=== PATIENT | male | born 1955 | race Caucasian/White ===

== ENCOUNTER 2024-12-29 23:49 | Emergency (ER) | payer MEDICARE, MEDICAID ==
[~2024-12-29] VITALS: Ht 182.9 cm; Wt 102.3 kg
[2024-12-30] MEDS: GASTROGRAFIN SOLUTION 30ML PO SCH (06:53)
[2024-12-30] MEDS: NS (Normal Saline) 0.9% 1,000 ML IV ONE (06:53)
[2024-12-30] MEDS: KETOROLAC 30 MG/ML 1ML VIAL IV ONE (06:53)
[2024-12-30 06:57] LABS: BASO # 0.1 10^3/uL (0.0-0.2); EOS # 0.2 10^3/uL (0.0-0.5); EOS % 3.6 % (0.0-3.0); HEMATOCRIT 36.3 % (42.0-52.0); HEMOGLOBIN 12.6 g/dl (13.5-17.5); MEAN CORPUSCULAR HEMOGLOBIN 30.3 pg (27.0-33.0); MEAN CORPUSCULAR HGB CONC 34.7 g/dl (32.0-36.5); MEAN CORPUSCULAR VOLUME 87.3 fl (80.0-96.0); MONO # 0.7 10^3/uL (0.0-0.8); MONO % 10.9 % (2.0-8.0); NEUTROPHILS # 4.2 10^3/uL (1.5-8.5); NEUTROPHILS % 68.3 % (36.0-66.0); RED BLOOD COUNT 4.16 10^6/uL (4.30-6.10); WHITE BLOOD COUNT 6.1 10^3/uL (4.0-10.0)
[2024-12-30 07:18] LABS: LIPASE 19 U/L (12-53)
[2024-12-30 07:21] LABS: ALBUMIN 2.8 G/DL (3.2-5.2); ALKALINE PHOSPHATASE 127 U/L (40-129); ALT/SGPT 16 U/L (7.0-40); AST/SGOT 25 U/L (<34); BILIRUBIN,DIRECT 0.8 MG/DL (<0.4); BILIRUBIN,TOTAL 1.9 MG/DL (0.3-1.2); BLOOD UREA NITROGEN 8 MG/DL (9-23); CALCIUM LEVEL 8.6 MG/DL (8.3-10.6); CARBON DIOXIDE LEVEL 28 MMOL/L (20-31); CHLORIDE LEVEL 108 MMOL/L (98-107); CREATININE FOR GFR 0.75 MG/DL (0.70-1.30); GLOMERULAR FILTRATION RATE > 60.0 (>49); GLUCOSE, FASTING 100 MG/DL (74-106); POTASSIUM SERUM 3.8 MMOL/L (3.5-5.1); SODIUM LEVEL 143 MMOL/L (136-145); TOTAL PROTEIN 6.1 G/DL (5.7-8.2)
[2024-12-30 08:06] LABS: INR 1.24; PARTIAL THROMBOPLASTIN TIME 42.3 SECONDS (24.8-34.2); PROTHROMBIN TIME 15.9 SECONDS (12.5-14.5)
[2024-12-30] MEDS ORDERED: ISOVUE-370 76% 100ML VIAL As Ordered ONE (08:15)
[2024-12-30] MEDS: ATORVASTATIN 20 MG TAB PO SCH (09:00)
[2024-12-30] MEDS ORDERED: SPIR-10 PO (16:27)
[2024-12-30] MEDS ORDERED: CONS10SO3 PO (16:27)
[2024-12-30] MEDS ORDERED: LEVE750T5 PO (16:27)
[2024-12-30] MEDS ORDERED: MELA5TAB47 PO (16:27)
[2024-12-30] MEDS ORDERED: NAPR-885 PO (16:27)
[2024-12-30] MEDS ORDERED: TRAZ-257 PO (16:27)
[2024-12-30] MEDS ORDERED: DULO1CAP5 PO (16:27)
[2024-12-30] MEDS ORDERED: CYCL-707 PO (16:27)
[2024-12-30] MEDS ORDERED: PANT40TA29 PO (16:27)
[2024-12-30] MEDS ORDERED: XIFA550T PO (16:27)
[2024-12-30] MEDS ORDERED: TREL1AER INH (16:27)
[2024-12-30] MEDS ORDERED: ATOR40TA75 PO (16:27)
[2024-12-30] MEDS ORDERED: GABA-1172 PO (16:27)
[2024-12-30] MEDS ORDERED: ACET1TAB55 PO (16:27)
[2024-12-30] MEDS ORDERED: FURO40TA2 PO (16:27)
[2024-12-30] MEDS ORDERED: HOME MED LIST COMPLETE! XX SCH (16:30)
[2024-12-30] MEDS: LACTULOSE 20GM/30ML SYRUP UDC PO SCH (17:29)
[2024-12-30] MEDS: FUROSEMIDE 40 MG TAB PO SCH (18:23)
[2024-12-30] MEDS: SPIRONOLACTONE 25 MG TAB PO SCH (18:23)
[2024-12-30] MEDS: levETIRAcetam 250MG TABLET (KEPPRA) PO SCH (20:12)
[2024-12-30] MEDS: DULoxetine 30MG CAPSULE (CYMBALTA) PO SCH (20:12)
[2024-12-30] MEDS: PANTOPRAZOLE 40MG TAB (PROTONIX) PO SCH (20:13)
[2024-12-30] MEDS: GABAPENTIN 300 MG CAP PO SCH (20:13)
[2024-12-30] MEDS: traZODone 100 MG TAB PO SCH (20:13)
[2024-12-30] MEDS: rifAXIMin 550 MG TAB (XIFAXAN) PO SCH (21:22)
[2024-12-31] MEDS ORDERED: NADOLOL 20MG TABLET PO SCH (09:00)
[2025-01-01] MEDS ORDERED: ACETAMINOPHEN 325 MG TAB PO PRN (02:20)
[2025-01-01] MEDS: KETOROLAC 30 MG/ML 1ML VIAL IV ONE (02:42)
[2025-01-01] MEDS: LIDOCAINE 5% (LIDODERM) PATCH TD SCH (02:42)
[2025-01-01] MEDS ORDERED: KETOROLAC 30 MG/ML 1ML VIAL IV PRN (09:00)
[2025-01-01 12:00] VITALS: BP 104/53; TEMP 97.1; O2SAT 95
== END 2025-01-01 12:05 | disposition home or self-care (01) ==
LOC: M ED 23:49
DX: R26.2 Difficulty in walking, not elsewhere classified (principal); K76.6 Portal hypertension; K74.69 Other cirrhosis of liver; K42.9 Umbilical hernia without obstruction or gangrene; K21.9 Gastro-esophageal reflux disease without esophagitis; E78.5 Hyperlipidemia, unspecified; J44.9 Chronic obstructive pulmonary disease, unspecified; F17.210 Nicotine dependence, cigarettes, uncomplicated; F10.10 Alcohol abuse, uncomplicated; F19.10 Other psychoactive substance abuse, uncomplicated; Z79.1 Long term (current) use of non-steroidal anti-inflammatories (NSAID); Z79.899 Other long term (current) drug therapy; Z88.1 Allergy status to other antibiotic agents; Z88.5 Allergy status to narcotic agent; Z88.8 Allergy status to other drugs, medicaments and biological substances
CPT/HCPCS: 74177; 80048; 80076; 83605; 83690; 85025; 85610; 85730; 86850; 86900; 86901; 93041; 96361; 96374; 96375; 97161; 97530; 99285; J1885; Q9963; Q9967

== ENCOUNTER 2025-01-05 10:36 | Inpatient (IN) | payer MEDICARE, MEDICAID ==
[~2025-01-05] VITALS: Ht 182.9 cm; Wt 104.6 kg
[2025-01-05] MEDS: FUROSEMIDE 40 MG TAB PO SCH (09:00)
[2025-01-05] MEDS: ATORVASTATIN 20 MG TAB PO SCH (09:00)
[2025-01-05] MEDS: DULoxetine 30MG CAPSULE (CYMBALTA) PO SCH (09:00)
[2025-01-05] MEDS: SPIRONOLACTONE 25 MG TAB PO SCH (09:00)
[2025-01-05] MEDS: FLUTICASONE HFA 110MCG 12GM INHALER INH SCH (09:00)
[~2025-01-05 10:36] MED LIST: ACET1TAB55 PO; ATOR40TA75 PO; CONS10SO3 PO; CYCL-707 PO; DULO1CAP5 PO; FURO40TA2 PO; GABA-1172 PO; LEVE750T5 PO; MELA5TAB47 PO; NAPR-885 PO; PANT40TA29 PO; SPIR-10 PO; TRAZ-257 PO; TREL1AER INH; XIFA550T PO
[2025-01-05 14:00] LABS: HEMATOCRIT 34.9 % (42.0-52.0); HEMOGLOBIN 12.3 g/dl (13.5-17.5); MEAN CORPUSCULAR HEMOGLOBIN 30.2 pg (27.0-33.0); MEAN CORPUSCULAR HGB CONC 35.2 g/dl (32.0-36.5); MEAN CORPUSCULAR VOLUME 85.7 fl (80.0-96.0); RED BLOOD COUNT 4.07 10^6/uL (4.30-6.10); WHITE BLOOD COUNT 5.4 10^3/uL (4.0-10.0)
[2025-01-05 14:19] LABS: AMPHETAMINES LEVEL URINE NEGATIVE (NEGATIVE); BARBITURATES URINE NEGATIVE (NEGATIVE); BENZODIAZEPINES URINE NEGATIVE (NEGATIVE); CANNABINOIDS URINE NEGATIVE (NEGATIVE); COCAINE METABOLITE URINE NEGATIVE (NEGATIVE); METHADONE URINE NEGATIVE (NEGATIVE); OPIATES URINE NEGATIVE (NEGATIVE); PHENCYCLIDINE URINE NEGATIVE (NEGATIVE)
[2025-01-05 14:21] LABS: ETHYL ALCOHOL (ETHANOL) 0.005 % (0.000-0.010)
[2025-01-05 14:22] LABS: SALICYLATE LEVEL < 3.0 MG/DL (<30)
[2025-01-05 14:23] LABS: ALKALINE PHOSPHATASE 119 U/L (40-129); ALT/SGPT 14 U/L (7.0-40); AST/SGOT 27 U/L (<34); BILIRUBIN,DIRECT 0.6 MG/DL (<0.4); BILIRUBIN,TOTAL 1.3 MG/DL (0.3-1.2); BLOOD UREA NITROGEN 8 MG/DL (9-23); CALCIUM LEVEL 8.3 MG/DL (8.3-10.6); CARBON DIOXIDE LEVEL 24 MMOL/L (20-31); CHLORIDE LEVEL 109 MMOL/L (98-107); CREATININE FOR GFR 0.73 MG/DL (0.70-1.30); GLOMERULAR FILTRATION RATE > 60.0 (>49); GLUCOSE, FASTING 86 MG/DL (74-106); POTASSIUM SERUM 3.8 MMOL/L (3.5-5.1); SODIUM LEVEL 140 MMOL/L (136-145); TOTAL PROTEIN 6.3 G/DL (5.7-8.2)
[2025-01-05 14:24] LABS: THYROID STIMULATING HORMONE 4.581 uIU/ML (0.55-4.78)
[2025-01-05 14:51] LABS: PLATELET COUNT, AUTOMATED 62 10^3/uL (150-450)
[2025-01-05] MEDS ORDERED: HOME MED LIST COMPLETE! XX SCH (15:45)
[2025-01-05] MEDS: GABAPENTIN 300 MG CAP PO SCH (16:00)
[2025-01-05 17:18] LABS: APPEARANCE, URINE CLEAR (CLEAR); BACTERIA, URINE AUTO NEGATIVE (NEGATIVE); BILIRUBIN, URINE AUTO NEGATIVE (NEGATIVE); BLOOD, URINE BLOOD NEGATIVE (NEGATIVE); COLOR, URINE YELLOW (YELLOW); GLUCOSE, URINE (UA) AUTO NEGATIVE (NEGATIVE); KETONE, URINE AUTO NEGATIVE (NEGATIVE); LEUKOCYTE ESTERASE, URINE AUTO NEGATIVE (NEGATIVE); NITRITE, URINE AUTO NEGATIVE (NEGATIVE); PROTEIN, URINE AUTO NEGATIVE (NEGATIVE); RBC, URINE AUTO 2 /HPF (0-3); SPECIFIC GRAVITY URINE AUTO 1.009 (1.002-1.035); SQUAMOUS EPITHELIAL CELL UR AU 0 /HPF (0-6); WBC, URINE AUTO 0 /HPF (0-3)
[2025-01-05] MEDS: LACTULOSE 20GM/30ML SYRUP UDC PO SCH (20:50)
[2025-01-05] MEDS: traZODone 100 MG TAB PO SCH (21:29)
[2025-01-05] MEDS: NAPROXEN 250 MG TAB PO SCH (21:33)
[2025-01-05] MEDS: levETIRAcetam 250MG TABLET (KEPPRA) PO SCH (21:33)
[2025-01-05] MEDS: CYCLOBENZAPRINE 10MG TABLET PO SCH (21:34)
[2025-01-05] MEDS: PANTOPRAZOLE 40MG TAB (PROTONIX) PO SCH (21:34)
[2025-01-07] MEDS: TIOTROPIUM BROM 2.5MCG/ACTUATION 4GM INH IH SCH (08:00)
[2025-01-07] MEDS: ADVAIR HFA 115/21MCG INHALER INH SCH (08:00)
[2025-01-07] MEDS ORDERED: diphenhydrAMINE 25MG CAP PO PRN (13:55)
[2025-01-07] MEDS ORDERED: OLANZapine ORAL DISINTEGRATING TAB 5MG PO PRN (13:55)
[2025-01-07] MEDS ORDERED: traZODone 50 MG TAB PO PRN (13:55)
[2025-01-07] MEDS ORDERED: MAALOX 30 ML SUSP *UDC PO PRN (13:55)
[2025-01-07] MEDS ORDERED: MOM 30ML SUSPENSION UDC PO PRN (13:55)
[2025-01-07] MEDS ORDERED: ACETAMINOPHEN 325 MG TAB PO PRN (13:55)
[2025-01-07 14:54] VITALS: BP 165/74; TEMP 97.8; O2SAT 96
[2025-01-07] MEDS: IBUPROFEN 400MG TAB PO PRN (18:58)
[2025-01-07] MEDS: CYCLOBENZAPRINE 10MG TABLET PO SCH (22:30)
[2025-01-07] MEDS: NAPROXEN 250 MG TAB PO SCH (22:30)
[2025-01-07] MEDS: PANTOPRAZOLE 40MG TAB (PROTONIX) PO SCH (22:30)
[2025-01-07] MEDS: GABAPENTIN 300 MG CAP PO SCH (22:31)
[2025-01-07] MEDS: levETIRAcetam 250MG TABLET (KEPPRA) PO SCH (22:31)
[2025-01-08 06:34] VITALS: BP 124/63; TEMP 98; O2SAT 94
[2025-01-08] MEDS ORDERED: FUROSEMIDE 40 MG TAB PO SCH (09:00)
[2025-01-08] MEDS ORDERED: SPIRONOLACTONE 25 MG TAB PO SCH (09:00)
[2025-01-08] MEDS: FUROSEMIDE 40 MG TAB PO SCH (09:07)
[2025-01-08] MEDS: DULoxetine 30MG CAPSULE (CYMBALTA) PO SCH (09:08)
[2025-01-08] MEDS: ATORVASTATIN 20 MG TAB PO SCH (09:08)
[2025-01-08] MEDS: SPIRONOLACTONE 25 MG TAB PO SCH (11:16)
[2025-01-08] MEDS: CYCLOBENZAPRINE 10MG TABLET PO SCH (11:16)
[2025-01-08] MEDS: LACTULOSE 20GM/30ML SYRUP UDC PO SCH (15:26)
[2025-01-08 16:02] VITALS: BP 145/67; TEMP 97.4; O2SAT 93
[2025-01-08] MEDS: traZODone 100 MG TAB PO SCH (19:36)
[2025-01-09 06:22] VITALS: BP 98/49; TEMP 98; O2SAT 95
== END 2025-01-09 15:51 | disposition home or self-care (01) | DRG 881 ==
LOC: M ED 10:36 → M ED INP 01-07 11:17 → M PSY 01-07 13:31
PROVIDERS: ADMIT Psychiatry & Neurology Psychiatry; ATTEND Psychiatry & Neurology Psychiatry
DX: F32.9 Major depressive disorder, single episode, unspecified (principal); Z59.02 Unsheltered homelessness; K76.6 Portal hypertension; F41.1 Generalized anxiety disorder; F17.200 Nicotine dependence, unspecified, uncomplicated; J44.9 Chronic obstructive pulmonary disease, unspecified; G40.909 Epilepsy, unspecified, not intractable, without status epilepticus; K21.9 Gastro-esophageal reflux disease without esophagitis; K74.60 Unspecified cirrhosis of liver; D69.6 Thrombocytopenia, unspecified; G62.9 Polyneuropathy, unspecified; E78.5 Hyperlipidemia, unspecified; Z79.899 Other long term (current) drug therapy; Z88.0 Allergy status to penicillin; Z88.1 Allergy status to other antibiotic agents; Z88.5 Allergy status to narcotic agent; Z88.8 Allergy status to other drugs, medicaments and biological substances; Z91.048 Other nonmedicinal substance allergy status

== ENCOUNTER → 2025-01-18 | Outpatient (CLI) | payer MEDICARE, MEDICAID | LOC: M SOG 07:47 | PROVIDERS: ATTEND Orthopaedic Surgery | DX: M25.551 Pain in right hip (principal) ==

== ENCOUNTER 2025-01-24 21:46 | Emergency (ER) | payer MEDICARE, MEDICAID ==
[~2025-01-24] VITALS: Ht 182.9 cm; Wt 97.2 kg
[2025-01-24 21:53] VITALS: BP 124/61; TEMP 98.6; O2SAT 97
== END 2025-01-25 02:34 | disposition left against medical advice (07) ==
LOC: EDBD 21:46 → M ED 21:46
DX: Z53.21 Procedure and treatment not carried out due to patient leaving prior to being seen by health care provider (principal)

== ENCOUNTER → 2025-01-30 | Outpatient (CLI) | payer MEDICARE, MEDICAID | LOC: M SOG 07:51 | PROVIDERS: ATTEND Orthopaedic Surgery | DX: M25.551 Pain in right hip (principal) ==

== ENCOUNTER → 2025-04-10 | Outpatient (CLI) | payer MEDICARE, MEDICAID ==
[~2025-04-10] MED LIST changes: +ALBU2.5V10 INH; +CEFD300CAP PO; +SPIR100T3 PO; +TRIA1CR80 TOP; +VENTAER INH
== END ==
LOC: M SOG 07:23
PROVIDERS: ATTEND Orthopaedic Surgery
DX: M16.11 Unilateral primary osteoarthritis, right hip (principal)

== ENCOUNTER 2025-05-11 12:07 | Emergency (ER) | payer MEDICARE, MEDICAID ==
[~2025-05-11] VITALS: Ht 182.9 cm; Wt 96.2 kg
[2025-05-11] MEDS: PERCOCET 5MG/325MG TAB PO ONE (12:51)
[2025-05-11] MEDS ORDERED: HOME MED LIST COMPLETE! XX SCH (15:45)
[2025-05-11] MEDS ORDERED: SPIR100T3 PO (15:45)
[2025-05-11] MEDS ORDERED: CYCL5TAB4 PO (15:45)
[2025-05-11] MEDS ORDERED: DULO40CA PO (15:45)
[2025-05-11] MEDS: predniSONE 20 MG TAB PO ONE (15:56)
[2025-05-11] MEDS: KETOROLAC 30 MG/ML 1 ML VIAL IM ONE (18:13)
[2025-05-11] MEDS: CYCLOBENZAPRINE 5 MG TABLET PO ONE (18:13)
[2025-05-11] MEDS: GABAPENTIN 300 MG CAP PO ONE (18:13)
[2025-05-11] MEDS ORDERED: PERC5TAB12 PO (18:42)
[2025-05-11] MEDS ORDERED: KETO-204 PO (18:42)
[2025-05-11 19:41] VITALS: BP 159/71; TEMP 96.4; O2SAT 94
== END 2025-05-11 19:45 | disposition home or self-care (01) ==
LOC: M ED 12:07
DX: M51.360 Other intervertebral disc degeneration, lumbar region with discogenic back pain only (principal); M48.061 Spinal stenosis, lumbar region without neurogenic claudication; I10 Essential (primary) hypertension; J44.9 Chronic obstructive pulmonary disease, unspecified; E78.5 Hyperlipidemia, unspecified; Z88.1 Allergy status to other antibiotic agents; Z88.5 Allergy status to narcotic agent; Z88.8 Allergy status to other drugs, medicaments and biological substances; Z79.01 Long term (current) use of anticoagulants; Z79.51 Long term (current) use of inhaled steroids; Z79.899 Other long term (current) drug therapy
CPT/HCPCS: 72146; 72148; 96372; 99285; J1885; J7512

== ENCOUNTER 2025-05-31 11:38 | Observation (INO) | payer MEDICARE, MEDICAID ==
[~2025-05-31 11:38] MED LIST changes: +CYCL5TAB4 PO; +DULO40CA PO; +KETO-204 PO; +PERC5TAB12 PO
[2025-05-31 12:11] LABS: VENOUS BASE EXCESS 1.9 (-2.0-2.0); VENOUS HCO3 29.1 MMOL/L (23.0-27.0); VENOUS O2 SATURATION 51.5 % (60.0-80.0); VENOUS PARTIAL PRESSURE CO2 56.1 mmHg (38.0-50.0); VENOUS PARTIAL PRESSURE O2 32.0 mmHg (30.0-50.0); VENOUS PH 7.333 UNITS (7.330-7.430); VENOUS STANDARD HCO3 25.0 MMOL/L; VENOUS TOTAL CO2 30.8 MMOL/L (24.0-28.0)
[2025-05-31 12:18] LABS: BASO # 0.1 10^3/uL (0.0-0.2); BASO % 1.1 % (0.0-1.0); EOS # 0.2 10^3/uL (0.0-0.5); EOS % 4.4 % (0.0-3.0); LYMPH # 0.8 10^3/uL (1.5-5.0); LYMPH % 15.3 % (24.0-44.0); MONO # 0.6 10^3/uL (0.0-0.8); MONO % 11.1 % (2.0-8.0); NEUTROPHILS # 3.5 10^3/uL (1.5-8.5); NEUTROPHILS % 67.9 % (36.0-66.0)
[2025-05-31 12:20] LABS: PLATELET COUNT, AUTOMATED 66 10^3/uL (150-450)
[2025-05-31 12:36] LABS: OSMOLALITY SERUM 307 MOSM/KG (280-301)
[2025-05-31 12:40] LABS: ETHYL ALCOHOL (ETHANOL) 0.004 % (0.000-0.010)
[2025-05-31 12:42] LABS: SALICYLATE LEVEL < 3.0 MG/DL (<30)
[2025-05-31] MEDS ORDERED: HOME MED LIST COMPLETE! XX SCH (14:00)
[2025-05-31 14:28] LABS: ALT/SGPT 16.0 U/L (7.0-40); AST/SGOT 31.0 U/L (<34); CALCIUM LEVEL 9.6 MG/DL (8.3-10.6); CARBON DIOXIDE LEVEL 30.0 MMOL/L (20-31); CHLORIDE LEVEL 102.0 MMOL/L (98-107); CREATININE FOR GFR 1.33 MG/DL (0.70-1.30); GLOMERULAR FILTRATION RATE 58.6 (>49); POTASSIUM SERUM 3.9 MMOL/L (3.5-5.1); SODIUM LEVEL 142.0 MMOL/L (136-145)
[2025-05-31 15:12] LABS: KETONE, URINE AUTO RFX NEGATIVE (NEGATIVE); LEUKOCYTE ESTERASE UR AUTO RFX NEGATIVE (NEGATIVE); NITRITE, URINE AUTO RFX NEGATIVE (NEGATIVE); RBC, URINE AUTO RFX 7 /HPF (0-3); SQUAM EPITHELIAL CELL UR AURFX 0 /HPF (0-6); WBC, URINE AUTO RFX 0 /HPF (0-3)
[2025-05-31] MEDS: LACTULOSE 20 GM/30 ML SYRUP UDC PO ONE (15:16)
[2025-05-31 15:37] LABS: AMPHETAMINES LEVEL URINE NEGATIVE (NEGATIVE); BARBITURATES URINE NEGATIVE (NEGATIVE); BENZODIAZEPINES URINE NEGATIVE (NEGATIVE)
[2025-05-31 15:38] LABS: COCAINE METABOLITE URINE NEGATIVE (NEGATIVE); METHADONE URINE NEGATIVE (NEGATIVE); OPIATES URINE NEGATIVE (NEGATIVE); PHENCYCLIDINE URINE NEGATIVE (NEGATIVE)
[2025-05-31 15:49] LABS: CANNABINOIDS URINE POSITIVE (NEGATIVE)
[2025-05-31] MEDS ORDERED: ALBUTEROL SULFATE 2.5 MG/0.5 ML INH CONCENTRATE NEB SOLN INH PRN (16:55)
[2025-05-31] MEDS: LACTULOSE 20 GM/30 ML SYRUP UDC PO SCH (18:20)
[2025-05-31] MEDS: LACTULOSE 20 GM/30 ML SYRUP UDC PR ONE (18:42)
[2025-05-31] MEDS ORDERED: LACTULOSE 20 GM/30 ML SYRUP UDC PO SCH (21:00)
[2025-05-31 21:25] VITALS: BP 128/79; TEMP 97.9; O2SAT 96
[2025-05-31] MEDS: PANTOPRAZOLE 40MG TAB PO SCH (21:48)
[2025-06-01 03:53] VITALS: BP 129/73; TEMP 98.8; O2SAT 98
[2025-06-01 07:16] LABS: CALCIUM LEVEL 9.1 MG/DL (8.3-10.6); CARBON DIOXIDE LEVEL 28.0 MMOL/L (20-31); CHLORIDE LEVEL 104.0 MMOL/L (98-107); CREATININE FOR GFR 1.16 MG/DL (0.70-1.30); GLOMERULAR FILTRATION RATE 69.0 (>49); MAGNESIUM LEVEL 1.7 MG/DL (1.8-2.4); POTASSIUM SERUM 3.5 MMOL/L (3.5-5.1); SODIUM LEVEL 143.0 MMOL/L (136-145)
[2025-06-01] MEDS: MAGNESIUM OXIDE 400 MG TAB PO SCH (08:13)
[2025-06-01 08:14] VITALS: BP 127/78
[2025-06-01] MEDS: ATORVASTATIN 20 MG TAB PO SCH (08:14)
[2025-06-01] MEDS: SPIRONOLACTONE 50 MG TAB PO SCH (08:14)
[2025-06-01] MEDS ORDERED: MAG SULF 1GM/100ML (MAG RUN) 1 GM in IV 1 EA IV SCH (09:00)
[2025-06-01 12:00] VITALS: BP 121/65; TEMP 99; O2SAT 95
[2025-06-01] MEDS ORDERED: MAGN400T33 PO (12:35)
== END 2025-06-01 14:24 | disposition home or self-care (01) ==
LOC: M ED 11:38 → M ED INP 16:10 → INTOOBSV 16:10 → M MSPAV 21:13
PROVIDERS: ADMIT Student in an Organized Health Care Education/Training Program; ATTEND Student in an Organized Health Care Education/Training Program
DX: K76.82 Hepatic encephalopathy (principal); Z91.148 Patient's other noncompliance with medication regimen for other reason; E83.42 Hypomagnesemia; R41.0 Disorientation, unspecified; K74.60 Unspecified cirrhosis of liver; K76.6 Portal hypertension; Z96.89 Presence of other specified functional implants; G40.909 Epilepsy, unspecified, not intractable, without status epilepticus; J44.9 Chronic obstructive pulmonary disease, unspecified; K21.9 Gastro-esophageal reflux disease without esophagitis; F32.A Depression, unspecified; I10 Essential (primary) hypertension; Z91.51 Personal history of suicidal behavior; D69.6 Thrombocytopenia, unspecified; D64.9 Anemia, unspecified; R79.89 Other specified abnormal findings of blood chemistry; M19.90 Unspecified osteoarthritis, unspecified site; G62.9 Polyneuropathy, unspecified; E78.5 Hyperlipidemia, unspecified; I48.91 Unspecified atrial fibrillation; Z88.0 Allergy status to penicillin; Z88.1 Allergy status to other antibiotic agents; Z88.5 Allergy status to narcotic agent; Z88.8 Allergy status to other drugs, medicaments and biological substances; Z91.048 Other nonmedicinal substance allergy status; Z79.899 Other long term (current) drug therapy; Z79.51 Long term (current) use of inhaled steroids; F17.200 Nicotine dependence, unspecified, uncomplicated
CPT/HCPCS: 36415; 70450; 71045; 80048; 80076; 80143; 80177; 80307; 81001; 82077; 82140; 82803; 83605; 83735; 83930; 84443; 85025; 85049; 85055; 93005; 93041; 94760; 97161; 99285; G0378

== ENCOUNTER 2025-06-12 14:11 | Emergency (ER) | payer MEDICARE, MEDICAID ==
[~2025-06-12] VITALS: Ht 182.9 cm; Wt 90.5 kg
[~2025-06-12 14:11] MED LIST changes: +MAGN400T33 PO
[2025-06-12 14:23] VITALS: TEMP 98.8
[2025-06-12 14:53] LABS: BASO # 0.1 10^3/uL (0.0-0.2); BASO % 0.9 % (0.0-1.0); EOS # 0.3 10^3/uL (0.0-0.5); EOS % 3.1 % (0.0-3.0); LYMPH # 1.1 10^3/uL (1.5-5.0); LYMPH % 12.1 % (24.0-44.0); MONO # 0.9 10^3/uL (0.0-0.8); MONO % 9.5 % (2.0-8.0); NEUTROPHILS # 6.6 10^3/uL (1.5-8.5); NEUTROPHILS % 73.8 % (36.0-66.0); PLATELET COUNT, AUTOMATED 97 10^3/uL (150-450)
[2025-06-12 15:21] LABS: INR 1.28
[2025-06-12 15:26] LABS: ALT/SGPT 21.0 U/L (7.0-40); AST/SGOT 26.0 U/L (<34); CALCIUM LEVEL 9.3 MG/DL (8.3-10.6); CARBON DIOXIDE LEVEL 27.0 MMOL/L (20-31); CHLORIDE LEVEL 101.0 MMOL/L (98-107); CREATININE FOR GFR 1.34 MG/DL (0.70-1.30); GLOMERULAR FILTRATION RATE 58.1 (>49); POTASSIUM SERUM 4.0 MMOL/L (3.5-5.1); SODIUM LEVEL 138.0 MMOL/L (136-145)
[2025-06-12] MEDS ORDERED: ISOVUE-370 76% 100 ML VIAL As Ordered ONE (15:51)
[2025-06-12 16:15] VITALS: BP 130/87; O2SAT 98
== END 2025-06-12 17:07 | disposition left against medical advice (07) ==
LOC: M ED 14:11
DX: R10.9 Unspecified abdominal pain (principal); I48.91 Unspecified atrial fibrillation; I25.2 Old myocardial infarction; I10 Essential (primary) hypertension; E78.5 Hyperlipidemia, unspecified; J44.9 Chronic obstructive pulmonary disease, unspecified; F41.9 Anxiety disorder, unspecified; F32.A Depression, unspecified; F17.210 Nicotine dependence, cigarettes, uncomplicated; Z88.1 Allergy status to other antibiotic agents; Z88.5 Allergy status to narcotic agent; Z88.8 Allergy status to other drugs, medicaments and biological substances; Z79.51 Long term (current) use of inhaled steroids; Z79.899 Other long term (current) drug therapy; Z79.01 Long term (current) use of anticoagulants; Z53.9 Procedure and treatment not carried out, unspecified reason

== ENCOUNTER 2025-06-15 09:53 | Inpatient (IN) | payer MEDICARE, MEDICAID ==
[~2025-06-15] VITALS: Ht 182.9 cm; Wt 89.9 kg
[2025-06-15 10:23] LABS: BASO # 0.1 10^3/uL (0.0-0.2); BASO % 0.9 % (0.0-1.0); EOS # 0.3 10^3/uL (0.0-0.5); EOS % 2.9 % (0.0-3.0); LYMPH # 1.1 10^3/uL (1.5-5.0); LYMPH % 10.2 % (24.0-44.0); MONO # 0.9 10^3/uL (0.0-0.8); MONO % 8.1 % (2.0-8.0); NEUTROPHILS # 8.2 10^3/uL (1.5-8.5); NEUTROPHILS % 77.4 % (36.0-66.0)
[2025-06-15 10:24] LABS: PLATELET COUNT, AUTOMATED 85 10^3/uL (150-450)
[2025-06-15 10:48] LABS: ETHYL ALCOHOL (ETHANOL) < 0.003 % (0.000-0.010)
[2025-06-15 10:50] LABS: SALICYLATE LEVEL < 3.0 MG/DL (<30)
[2025-06-15 10:53] LABS: ALT/SGPT 26 U/L (7.0-40); AST/SGOT 66 U/L (<34); CALCIUM LEVEL 9.4 MG/DL (8.3-10.6); CARBON DIOXIDE LEVEL 25 MMOL/L (20-31); CHLORIDE LEVEL 99 MMOL/L (98-107); CREATININE FOR GFR 1.57 MG/DL (0.70-1.30); GLOMERULAR FILTRATION RATE 48.0 (>49); POTASSIUM SERUM 5.0 MMOL/L (3.5-5.1); SODIUM LEVEL 133 MMOL/L (136-145)
[2025-06-15 11:57] LABS: KETONE, URINE AUTO RFX NEGATIVE (NEGATIVE); LEUKOCYTE ESTERASE UR AUTO RFX NEGATIVE (NEGATIVE); NITRITE, URINE AUTO RFX NEGATIVE (NEGATIVE); RBC, URINE AUTO RFX 2 /HPF (0-3); SQUAM EPITHELIAL CELL UR AURFX 0 /HPF (0-6); WBC, URINE AUTO RFX 1 /HPF (0-3)
[2025-06-15] MEDS: LIDOCAINE 2% 5 ML JELLY UROJET TOP ONE (12:19)
[2025-06-15 12:26] LABS: AMPHETAMINES LEVEL URINE NEGATIVE (NEGATIVE); BARBITURATES URINE NEGATIVE (NEGATIVE); BENZODIAZEPINES URINE NEGATIVE (NEGATIVE); CANNABINOIDS URINE NEGATIVE (NEGATIVE); COCAINE METABOLITE URINE NEGATIVE (NEGATIVE); METHADONE URINE NEGATIVE (NEGATIVE); OPIATES URINE NEGATIVE (NEGATIVE); PHENCYCLIDINE URINE NEGATIVE (NEGATIVE)
[2025-06-15 12:29] LABS: INR 1.28
[2025-06-15] MEDS: NS (Normal Saline) 0.9% 1,000 ML IV ONE (13:30)
[2025-06-15] MEDS ORDERED: HOME MED LIST COMPLETE! XX SCH (13:30)
[2025-06-15] MEDS: LACTULOSE 20 GM/30 ML SYRUP UDC PR ONE (13:30)
[2025-06-15] MEDS ORDERED: ACETAMINOPHEN 325 MG TAB PO PRN (14:35)
[2025-06-15] MEDS ORDERED: MAALOX 30 ML SUSP *UDC PO PRN (14:35)
[2025-06-15] MEDS ORDERED: MOM 30 ML SUSPENSION UDC PO PRN (14:35)
[2025-06-15] MEDS ORDERED: GLUCOSE 4 GM CHEW PO PRN (14:45)
[2025-06-15] MEDS ORDERED: GLUCAGON INJ 1 MG VIAL SC PRN (14:45)
[2025-06-15] MEDS ORDERED: DEXTROSE 50% 50 ML SYRINGE IV PRN (14:45)
[2025-06-15] MEDS: LACTULOSE 20 GM/30 ML SYRUP UDC PO SCH ×2 (16:00→20:00)
[2025-06-15 16:25] VITALS: BP 146/70; TEMP 97.5; O2SAT 98
[2025-06-15] MEDS ORDERED: LACTULOSE 20 GM/30 ML SYRUP UDC PR ONE (18:40)
[2025-06-15 19:41] VITALS: BP 129/74; TEMP 97.8; O2SAT 98
[2025-06-15] MEDS ORDERED: LACTULOSE 20 GM/30 ML SYRUP UDC NG SCH (20:00)
[2025-06-15] MEDS: PANTOPRAZOLE 40MG TAB PO SCH (21:00)
[2025-06-15] MEDS: METOPROLOL TART 12.5 MG PER 1/2 TAB PO SCH (21:00)
[2025-06-15] MEDS: levETIRAcetam INJection 750 MG in D5W 100 ML IV SCH (21:31)
[2025-06-15 23:49] VITALS: BP 107/58; TEMP 98.6; O2SAT 96
[2025-06-16 04:23] VITALS: BP 120/73; TEMP 98.4; O2SAT 96
[2025-06-16 07:24] VITALS: BP 127/58; TEMP 97.6; O2SAT 97
[2025-06-16 07:38] LABS: CARBON DIOXIDE LEVEL 26.0 MMOL/L (20-31); CHLORIDE LEVEL 108.0 MMOL/L (98-107); CREATININE FOR GFR 1.12 MG/DL (0.70-1.30); GLOMERULAR FILTRATION RATE 72.0 (>49); MAGNESIUM LEVEL 1.8 MG/DL (1.8-2.4); POTASSIUM SERUM 4.3 MMOL/L (3.5-5.1); SODIUM LEVEL 141.0 MMOL/L (136-145)
[2025-06-16 07:50] LABS: CALCIUM LEVEL 8.4 MG/DL (8.3-10.6)
[2025-06-16] MEDS: ATORVASTATIN 20 MG TAB PO SCH (09:00)
[2025-06-16] MEDS ORDERED: METOPROLOL 5 MG/5 ML VIAL IV PRN (10:20)
[2025-06-16] MEDS: D5W/0.9% SODIUM CHLORIDE 1,000 ML IV SCH (15:28)
[2025-06-16 15:41] VITALS: BP 109/59; TEMP 97.7; O2SAT 98
[2025-06-16 19:30] VITALS: BP 105/57; TEMP 98.9; O2SAT 98
[2025-06-17 00:35] VITALS: BP 107/55; TEMP 98.3; O2SAT 97
[2025-06-17 03:10] VITALS: BP 121/75; TEMP 98.2; O2SAT 98
[2025-06-17 06:26] LABS: BASO # 0.1 10^3/uL (0.0-0.2); BASO % 0.9 % (0.0-1.0); EOS # 0.3 10^3/uL (0.0-0.5); EOS % 3.9 % (0.0-3.0); LYMPH # 1.1 10^3/uL (1.5-5.0); LYMPH % 17.9 % (24.0-44.0); MONO # 0.7 10^3/uL (0.0-0.8); MONO % 10.4 % (2.0-8.0); NEUTROPHILS # 4.2 10^3/uL (1.5-8.5); NEUTROPHILS % 66.6 % (36.0-66.0)
[2025-06-17 06:28] LABS: PLATELET COUNT, AUTOMATED 55 10^3/uL (150-450)
[2025-06-17 06:38] VITALS: BP 113/69; TEMP 98.2; O2SAT 95
[2025-06-17 09:40] VITALS: BP 124/84; TEMP 98; O2SAT 98
[2025-06-17 09:44] VITALS: BP 124/84
[2025-06-17] MEDS ORDERED: CONS10SO3 PO (11:58)
[2025-06-23] MEDS ORDERED: PRED20TA PO (23:10)
== END 2025-06-17 12:45 | disposition home or self-care (01) | DRG 433 ==
LOC: M ED 09:53 → EDBD 09:53 → M ED INP 14:31 → M PCU 16:15
PROVIDERS: ADMIT Student in an Organized Health Care Education/Training Program; ATTEND Student in an Organized Health Care Education/Training Program
DX: K74.60 Unspecified cirrhosis of liver (principal); K76.6 Portal hypertension; I85.10 Secondary esophageal varices without bleeding; N17.9 Acute kidney failure, unspecified; E72.20 Disorder of urea cycle metabolism, unspecified; D69.6 Thrombocytopenia, unspecified; J44.9 Chronic obstructive pulmonary disease, unspecified; K21.9 Gastro-esophageal reflux disease without esophagitis; I48.91 Unspecified atrial fibrillation; D63.8 Anemia in other chronic diseases classified elsewhere; R00.0 Tachycardia, unspecified; G40.909 Epilepsy, unspecified, not intractable, without status epilepticus; M19.90 Unspecified osteoarthritis, unspecified site; G62.9 Polyneuropathy, unspecified; F41.9 Anxiety disorder, unspecified; F32.A Depression, unspecified; K76.82 Hepatic encephalopathy; Z91.148 Patient's other noncompliance with medication regimen for other reason; E78.5 Hyperlipidemia, unspecified; Z79.899 Other long term (current) drug therapy; Z88.0 Allergy status to penicillin; Z88.1 Allergy status to other antibiotic agents; Z88.5 Allergy status to narcotic agent; Z88.8 Allergy status to other drugs, medicaments and biological substances

== ENCOUNTER → 2025-07-09 | Outpatient (CLI) | payer MEDICARE, MEDICAID ==
[~2025-07-09] MED LIST changes: +PRED20TA PO
== END ==
LOC: M WHC 13:57
PROVIDERS: ATTEND Nurse Practitioner Family
DX: R92.30 Dense breasts, unspecified (principal)
CPT/HCPCS: 77066; G0279

== ENCOUNTER 2025-07-25 23:12 | Inpatient (IN) | payer MEDICARE, MEDICAID ==
[~2025-07-25] VITALS: Ht 182.9 cm; Wt 90.9 kg
[2025-07-25 23:45] LABS: BASO # 0.1 10^3/uL (0.0-0.2); BASO % 1.0 % (0.0-1.0); EOS # 0.2 10^3/uL (0.0-0.5); EOS % 2.7 % (0.0-3.0); LYMPH # 1.0 10^3/uL (1.5-5.0); LYMPH % 14.2 % (24.0-44.0); MONO # 0.9 10^3/uL (0.0-0.8); MONO % 12.7 % (2.0-8.0); NEUTROPHILS # 4.7 10^3/uL (1.5-8.5); NEUTROPHILS % 69.0 % (36.0-66.0); PLATELET COUNT, AUTOMATED 103 10^3/uL (150-450)
[2025-07-25] MEDS: IPRATROPIUM 0.5 MG/ALBUTEROL 2.5 MG INH SOL UD 3 ML NEB PRN (23:55)
[2025-07-26 00:26] LABS: VENOUS BASE EXCESS 4.9 (-2.0-2.0); VENOUS HCO3 30.3 MMOL/L (23.0-27.0); VENOUS O2 SATURATION 94.6 % (60.0-80.0); VENOUS PARTIAL PRESSURE CO2 48.6 mmHg (38.0-50.0); VENOUS PARTIAL PRESSURE O2 76.5 mmHg (30.0-50.0); VENOUS PH 7.413 UNITS (7.330-7.430); VENOUS STANDARD HCO3 28.8 MMOL/L; VENOUS TOTAL CO2 31.8 MMOL/L (24.0-28.0)
[2025-07-26 00:37] LABS: ALT/SGPT 31.0 U/L (7.0-40); AST/SGOT 35.0 U/L (<34); CALCIUM LEVEL 8.0 MG/DL (8.3-10.6); CARBON DIOXIDE LEVEL 30.0 MMOL/L (20-31); CHLORIDE LEVEL 97.0 MMOL/L (98-107); CREATININE FOR GFR 1.06 MG/DL (0.70-1.30); GLOMERULAR FILTRATION RATE 76.9 (>49); POTASSIUM SERUM 2.8 MMOL/L (3.5-5.1); SODIUM LEVEL 137.0 MMOL/L (136-145)
[2025-07-26 00:58] LABS: CK-MB VALUE MASS < 1.0 NG/ML (<3.6); MAGNESIUM LEVEL 1.4 MG/DL (1.8-2.4)
[2025-07-26 01:01] LABS: CPK CREATINE PHOSPHOKINASE 29 U/L (46-171)
[2025-07-26] MEDS ORDERED: ISOVUE-370 76% 100 ML VIAL As Ordered ONE (01:18)
[2025-07-26 02:03] LABS: CK-MB VALUE MASS < 1.0 NG/ML (<3.6)
[2025-07-26 02:04] LABS: CPK CREATINE PHOSPHOKINASE 29 U/L (46-171)
[2025-07-26] MEDS: POTASSIUM CHLORIDE 10MEQ SR TABLET PO ONE (02:35)
[2025-07-26] MEDS: KCL 10MEQ/100ML SWI (KRUN) 10 MEQ in IV 1 EA IV ONE (02:36)
[2025-07-26] MEDS: MAG SULF 1GM/100ML (MAG RUN) 1 GM in IV 1 EA IV ONE (02:36)
[2025-07-26] MEDS ORDERED: MAALOX 30 ML SUSP *UDC PO PRN (04:15)
[2025-07-26] MEDS ORDERED: MOM 30 ML SUSPENSION UDC PO PRN (04:15)
[2025-07-26] MEDS ORDERED: ACETAMINOPHEN 325 MG TAB PO PRN (04:15)
[2025-07-26] MEDS ORDERED: ALBUTEROL SULFATE 2.5 MG/0.5 ML INH CONCENTRATE NEB SOLN NEB PRN (04:20)
[2025-07-26] MEDS: cefTRIAXone SOD 2 GM in DEXTROSE 5% (D5W) ADV/MINI-BAG 50 ML IV ONE (05:38)
[2025-07-26] MEDS: predniSONE 20 MG TAB PO SCH (05:38)
[2025-07-26] MEDS ORDERED: guaiFENesin DM *SUGAR FREE* 5 ML ORALSYRG PO PRN (07:25)
[2025-07-26] MEDS: SODIUM CHLORIDE HYPERTONIC 3% 4ML NEB SOL INH SCH (08:05)
[2025-07-26] MEDS: BUDESONIDE 0.5 MG/2 ML INHALATION SUSPENSION NEB SCH (08:05)
[2025-07-26] MEDS: IPRATROPIUM 0.5 MG/ALBUTEROL 2.5 MG INH SOL UD 3 ML NEB SCH (08:05)
[2025-07-26] MEDS: PANTOPRAZOLE 40MG VIAL IV SCH (08:59)
[2025-07-26] MEDS: DOCUSATE SODIUM 100 MG CAPSULE PO SCH (08:59)
[2025-07-26] MEDS ORDERED: LACT20EL PO (09:28)
[2025-07-26] MEDS ORDERED: PRIM50TA6 PO (09:28)
[2025-07-26] MEDS ORDERED: HOME MED LIST COMPLETE! XX SCH (09:30)
[2025-07-26 09:43] LABS: BASO # 0.0 10^3/uL (0.0-0.2); BASO % 0.2 % (0.0-1.0); EOS # 0.0 10^3/uL (0.0-0.5); EOS % 0.2 % (0.0-3.0); LYMPH # 0.2 10^3/uL (1.5-5.0); LYMPH % 5.3 % (24.0-44.0); MONO # 0.1 10^3/uL (0.0-0.8); MONO % 1.7 % (2.0-8.0); NEUTROPHILS # 3.8 10^3/uL (1.5-8.5); NEUTROPHILS % 92.1 % (36.0-66.0)
[2025-07-26 09:45] LABS: PLATELET COUNT, AUTOMATED 82 10^3/uL (150-450)
[2025-07-26 10:13] LABS: ALT/SGPT 31.0 U/L (7.0-40); AST/SGOT 32.0 U/L (<34); CALCIUM LEVEL 8.0 MG/DL (8.3-10.6); CARBON DIOXIDE LEVEL 23.0 MMOL/L (20-31); CHLORIDE LEVEL 98.0 MMOL/L (98-107); CREATININE FOR GFR 0.98 MG/DL (0.70-1.30); GLOMERULAR FILTRATION RATE 84.5 (>49); MAGNESIUM LEVEL 1.6 MG/DL (1.8-2.4); POTASSIUM SERUM 3.3 MMOL/L (3.5-5.1); SODIUM LEVEL 135.0 MMOL/L (136-145)
[2025-07-26] MEDS: DOXYCYCLINE HYCLATE 100 MG in DEXTROSE 5% (D5W) MINI-BAG PLU 100 ML IV SCH (11:28)
[2025-07-26] MEDS: ATORVASTATIN 20 MG TAB PO SCH (11:58)
[2025-07-26] MEDS: FUROSEMIDE 40 MG TAB PO SCH (11:59)
[2025-07-26] MEDS: SPIRONOLACTONE 50 MG TAB PO SCH (11:59)
[2025-07-26] MEDS: MAG SULF 1GM/100ML (MAG RUN) 1 GM in IV 1 EA IV SCH (12:00)
[2025-07-26] MEDS: POTASSIUM CHLORIDE 10MEQ SR TABLET PO SCH (12:03)
[2025-07-26] MEDS: PRIMIDONE 50MG TAB PO SCH (12:08)
[2025-07-26] MEDS: CEFEPIME HCL 2 GM in DEXTROSE 5% (D5W) ADV/MINI-BAG 50 ML IV SCH (14:47)
[2025-07-26 16:00] VITALS: BP 124/60; TEMP 98.6; O2SAT 96
[2025-07-26] MEDS: KCL 10MEQ/100ML SWI (KRUN) 10 MEQ in IV 1 EA IV SCH (16:17)
[2025-07-26] MEDS: LACTULOSE 20 GM/30 ML SYRUP UDC PO PRN (16:36)
[2025-07-26 19:39] VITALS: BP 122/62; TEMP 99; O2SAT 96
[2025-07-26] MEDS: MAGNESIUM OXIDE 400 MG TAB PO SCH (20:18)
[2025-07-27 04:23] VITALS: BP 133/63; TEMP 98.6; O2SAT 99
[2025-07-27] MEDS ORDERED: cefTRIAXone SOD 1 GM in DEXTROSE 5% (D5W) ADV/MINI-BAG 50 ML IV SCH (05:00)
[2025-07-27 07:10] LABS: BASO # 0.0 10^3/uL (0.0-0.2); BASO % 0.1 % (0.0-1.0); EOS # 0.0 10^3/uL (0.0-0.5); EOS % 0.1 % (0.0-3.0); LYMPH # 0.5 10^3/uL (1.5-5.0); LYMPH % 4.2 % (24.0-44.0); MONO # 0.7 10^3/uL (0.0-0.8); MONO % 5.9 % (2.0-8.0); NEUTROPHILS # 9.7 10^3/uL (1.5-8.5); NEUTROPHILS % 88.9 % (36.0-66.0)
[2025-07-27 07:11] LABS: PLATELET COUNT, AUTOMATED 82 10^3/uL (150-450)
[2025-07-27 07:38] LABS: ALT/SGPT 26.0 U/L (7.0-40); AST/SGOT 26.0 U/L (<34); CALCIUM LEVEL 8.1 MG/DL (8.3-10.6); CARBON DIOXIDE LEVEL 27.0 MMOL/L (20-31); CHLORIDE LEVEL 103.0 MMOL/L (98-107); CREATININE FOR GFR 0.93 MG/DL (0.70-1.30); GLOMERULAR FILTRATION RATE 90.0 (>49); MAGNESIUM LEVEL 1.8 MG/DL (1.8-2.4); POTASSIUM SERUM 3.7 MMOL/L (3.5-5.1); SODIUM LEVEL 139.0 MMOL/L (136-145)
[2025-07-27] MEDS: HEPARIN SOD 5000 UNITS/ML 1 ML VIAL/SYRINGE SQ SCH (08:59)
[2025-07-27 12:00] VITALS: BP 120/62; TEMP 98.2; O2SAT 96
[2025-07-27 20:00] VITALS: BP 124/60; TEMP 98.6; O2SAT 96
[2025-07-27] MEDS: DOXYCYCLINE HYCLATE 100 MG TABLET PO SCH (20:08)
[2025-07-28 04:00] VITALS: BP 142/86; TEMP 97.8; O2SAT 96
[2025-07-28 06:55] LABS: BASO # 0.0 10^3/uL (0.0-0.2); BASO % 0.1 % (0.0-1.0); EOS # 0.1 10^3/uL (0.0-0.5); EOS % 0.8 % (0.0-3.0); LYMPH # 0.9 10^3/uL (1.5-5.0); LYMPH % 8.5 % (24.0-44.0); MONO # 0.8 10^3/uL (0.0-0.8); MONO % 8.0 % (2.0-8.0); NEUTROPHILS # 8.4 10^3/uL (1.5-8.5); NEUTROPHILS % 82.1 % (36.0-66.0)
[2025-07-28 07:06] LABS: PLATELET COUNT, AUTOMATED 94 10^3/uL (150-450)
[2025-07-28 07:25] LABS: ALT/SGPT 33.0 U/L (7.0-40); AST/SGOT 33.0 U/L (<34); CALCIUM LEVEL 8.6 MG/DL (8.3-10.6); CARBON DIOXIDE LEVEL 28.0 MMOL/L (20-31); CHLORIDE LEVEL 103.0 MMOL/L (98-107); CREATININE FOR GFR 0.93 MG/DL (0.70-1.30); GLOMERULAR FILTRATION RATE 90.0 (>49); MAGNESIUM LEVEL 2.0 MG/DL (1.8-2.4); POTASSIUM SERUM 3.5 MMOL/L (3.5-5.1); SODIUM LEVEL 142.0 MMOL/L (136-145)
[2025-07-28 12:00] VITALS: BP 135/63; TEMP 98.2; O2SAT 96
[2025-07-28 19:36] VITALS: BP 100/58; TEMP 98.5; O2SAT 96
[2025-07-28 20:00] VITALS: BP 100/58; TEMP 98.5; O2SAT 96
[2025-07-29 03:56] VITALS: BP 148/75; TEMP 98.5; O2SAT 97
[2025-07-29 04:00] VITALS: BP 148/75; TEMP 98.5; O2SAT 97
[2025-07-29 05:57] LABS: BASO # 0.0 10^3/uL (0.0-0.2); BASO % 0.2 % (0.0-1.0); EOS # 0.1 10^3/uL (0.0-0.5); EOS % 1.3 % (0.0-3.0); LYMPH # 0.7 10^3/uL (1.5-5.0); LYMPH % 10.9 % (24.0-44.0); MONO # 0.7 10^3/uL (0.0-0.8); MONO % 11.2 % (2.0-8.0); NEUTROPHILS # 4.5 10^3/uL (1.5-8.5); NEUTROPHILS % 76.1 % (36.0-66.0)
[2025-07-29 06:00] LABS: PLATELET COUNT, AUTOMATED 81 10^3/uL (150-450)
[2025-07-29 06:17] LABS: ALT/SGPT 40.0 U/L (7.0-40); AST/SGOT 37.0 U/L (<34); CALCIUM LEVEL 8.7 MG/DL (8.3-10.6); CARBON DIOXIDE LEVEL 30.0 MMOL/L (20-31); CHLORIDE LEVEL 103.0 MMOL/L (98-107); CREATININE FOR GFR 0.93 MG/DL (0.70-1.30); GLOMERULAR FILTRATION RATE 90.0 (>49); MAGNESIUM LEVEL 1.8 MG/DL (1.8-2.4); POTASSIUM SERUM 3.3 MMOL/L (3.5-5.1); SODIUM LEVEL 141.0 MMOL/L (136-145)
[2025-07-29] MEDS: KCL 10MEQ/100ML SWI (KRUN) 10 MEQ in IV 1 EA IV SCH (08:44)
[2025-07-29 11:55] VITALS: BP 131/72; TEMP 97.5; O2SAT 94
[2025-07-29] MEDS: POTASSIUM CHLORIDE 10% LIQ 20MEQ/15ML UDC PO ONE (12:46)
[2025-07-29 20:00] VITALS: BP 122/60; TEMP 98.8; O2SAT 98
[2025-07-30 02:49] VITALS: BP 122/79; TEMP 97.9; O2SAT 96
[2025-07-30 06:03] LABS: BASO # 0.0 10^3/uL (0.0-0.2); BASO % 0.2 % (0.0-1.0); EOS # 0.1 10^3/uL (0.0-0.5); EOS % 2.1 % (0.0-3.0); LYMPH # 0.8 10^3/uL (1.5-5.0); LYMPH % 12.2 % (24.0-44.0); MONO # 0.6 10^3/uL (0.0-0.8); MONO % 9.0 % (2.0-8.0); NEUTROPHILS # 4.7 10^3/uL (1.5-8.5); NEUTROPHILS % 75.9 % (36.0-66.0)
[2025-07-30 06:09] LABS: PLATELET COUNT, AUTOMATED 69 10^3/uL (150-450)
[2025-07-30 06:25] LABS: ALT/SGPT 47 U/L (7.0-40); AST/SGOT 40 U/L (<34); CALCIUM LEVEL 9.1 MG/DL (8.3-10.6); CARBON DIOXIDE LEVEL 26 MMOL/L (20-31); CHLORIDE LEVEL 104 MMOL/L (98-107); CREATININE FOR GFR 0.83 MG/DL (0.70-1.30); GLOMERULAR FILTRATION RATE > 90.0 (>49); MAGNESIUM LEVEL 1.8 MG/DL (1.8-2.4); POTASSIUM SERUM 3.8 MMOL/L (3.5-5.1); SODIUM LEVEL 139 MMOL/L (136-145)
[2025-07-30 08:10] VITALS: BP 118/80
[2025-07-30 12:00] VITALS: BP 120/74; TEMP 98.5; O2SAT 95
[2025-07-30] MEDS ORDERED: DOXY-442 PO (12:51)
[2025-07-30] MEDS ORDERED: PRED10TA2 PO (12:51)
[2025-07-30] MEDS ORDERED: CEFP100T PO (12:51)
[2025-07-30 22:47] LABS: MYCOPLASMA PNEUMONIAE IGG 3.09 (<=0.90); MYCOPLASMA PNEUMONIAE IGM 260.0 U/mL (<770)
[2025-07-31 22:27] LABS: URINE STREP PNEUMONIAE ANTIGEN Not Detected (Not Detected)
== END 2025-07-30 13:05 | disposition home or self-care (01) | DRG 194 ==
LOC: M ED 23:12 → M ED INP 07-26 04:14 → M MS4PR 07-26 15:40
PROVIDERS: ADMIT Student in an Organized Health Care Education/Training Program; ATTEND Student in an Organized Health Care Education/Training Program
DX: J18.9 Pneumonia, unspecified organism (principal); J44.0 Chronic obstructive pulmonary disease with (acute) lower respiratory infection; K76.6 Portal hypertension; J44.1 Chronic obstructive pulmonary disease with (acute) exacerbation; E78.5 Hyperlipidemia, unspecified; E83.42 Hypomagnesemia; E87.6 Hypokalemia; I48.91 Unspecified atrial fibrillation; K21.9 Gastro-esophageal reflux disease without esophagitis; G40.909 Epilepsy, unspecified, not intractable, without status epilepticus; D69.6 Thrombocytopenia, unspecified; K74.60 Unspecified cirrhosis of liver; F17.210 Nicotine dependence, cigarettes, uncomplicated; D63.8 Anemia in other chronic diseases classified elsewhere; G62.9 Polyneuropathy, unspecified; F32.A Depression, unspecified; F41.9 Anxiety disorder, unspecified; I25.10 Atherosclerotic heart disease of native coronary artery without angina pectoris; G89.29 Other chronic pain; Z79.51 Long term (current) use of inhaled steroids; Z79.899 Other long term (current) drug therapy; Z79.52 Long term (current) use of systemic steroids; Z88.0 Allergy status to penicillin; Z88.1 Allergy status to other antibiotic agents; Z88.5 Allergy status to narcotic agent; Z88.8 Allergy status to other drugs, medicaments and biological substances; Z91.048 Other nonmedicinal substance allergy status

== ENCOUNTER 2025-08-08 14:54 | Emergency (ER) | payer MEDICARE, MEDICAID ==
[~2025-08-08] VITALS: Ht 182.9 cm; Wt 95.1 kg
[~2025-08-08 14:54] MED LIST changes: +CEFP100T PO; +DOXY-442 PO; +LACT20EL PO; +PRED10TA2 PO; +PRIM50TA6 PO
[2025-08-08 15:16] LABS: BASO # 0.1 10^3/uL (0.0-0.2); BASO % 0.6 % (0.0-1.0); EOS # 0.3 10^3/uL (0.0-0.5); EOS % 2.1 % (0.0-3.0); LYMPH # 0.7 10^3/uL (1.5-5.0); LYMPH % 6.1 % (24.0-44.0); MONO # 1.1 10^3/uL (0.0-0.8); MONO % 9.5 % (2.0-8.0); NEUTROPHILS # 9.8 10^3/uL (1.5-8.5); NEUTROPHILS % 81.3 % (36.0-66.0); PLATELET COUNT, AUTOMATED 63 10^3/uL (150-450)
[2025-08-08 15:37] LABS: INR 1.3
[2025-08-08] MEDS: IPRATROPIUM 0.5 MG/ALBUTEROL 2.5 MG INH SOL UD 3 ML NEB PRN (15:41)
[2025-08-08 15:44] LABS: CK-MB VALUE MASS < 1.0 NG/ML (<3.6)
[2025-08-08 15:49] LABS: FREE T4 1.51 NG/DL (0.89-1.76)
[2025-08-08 16:14] LABS: ALT/SGPT 46 U/L (7.0-40); AST/SGOT 39 U/L (<34); CALCIUM LEVEL 8.1 MG/DL (8.3-10.6); CARBON DIOXIDE LEVEL 33 MMOL/L (20-31); CHLORIDE LEVEL 92 MMOL/L (98-107); CPK CREATINE PHOSPHOKINASE 34 U/L (46-171); CREATININE FOR GFR 1.05 MG/DL (0.70-1.30); GLOMERULAR FILTRATION RATE 77.3 (>49); MAGNESIUM LEVEL 1.6 MG/DL (1.8-2.4); POTASSIUM SERUM 2.8 MMOL/L (3.5-5.1); SODIUM LEVEL 135 MMOL/L (136-145); THYROXINE (T4) 6.5 UG/DL (4.5-10.9)
[2025-08-08] MEDS: MAG SULF 1GM/100ML (MAG RUN) 1 GM in IV 1 EA IV ONE (16:40)
[2025-08-08] MEDS: POTASSIUM CHLORIDE 10MEQ SR TABLET PO ONE (16:40)
[2025-08-08 16:42] LABS: CK-MB VALUE MASS < 1.0 NG/ML (<3.6)
[2025-08-08 16:50] LABS: CPK CREATINE PHOSPHOKINASE 44 U/L (46-171)
[2025-08-08 18:42] VITALS: O2SAT 93
[2025-08-08] MEDS ORDERED: IPRA0.00 NEB (18:53)
[2025-08-08 19:00] VITALS: BP 133/75; TEMP 97.3; O2SAT 94
== END 2025-08-08 19:25 | disposition home or self-care (01) ==
LOC: EDBD 14:54 → M ED 14:54
DX: J44.1 Chronic obstructive pulmonary disease with (acute) exacerbation (principal); I48.91 Unspecified atrial fibrillation; I25.2 Old myocardial infarction; K21.9 Gastro-esophageal reflux disease without esophagitis; I10 Essential (primary) hypertension; E78.5 Hyperlipidemia, unspecified; G40.909 Epilepsy, unspecified, not intractable, without status epilepticus; F41.9 Anxiety disorder, unspecified; F32.A Depression, unspecified; F17.210 Nicotine dependence, cigarettes, uncomplicated; Z88.1 Allergy status to other antibiotic agents; Z88.5 Allergy status to narcotic agent; Z88.8 Allergy status to other drugs, medicaments and biological substances; Z79.51 Long term (current) use of inhaled steroids; Z79.2 Long term (current) use of antibiotics; Z79.01 Long term (current) use of anticoagulants; Z79.52 Long term (current) use of systemic steroids; Z79.899 Other long term (current) drug therapy
CPT/HCPCS: 71045; 80047; 80048; 80076; 82550; 82553; 83605; 83690; 83735; 83880; 84145; 84436; 84439; 84443; 84484; 85025; 85049; 85055; 85610; 85730; 87040; 87486; 87581; 87633; 87798; 93005; 93041; 94640; 94760; 96365; 96366; 96375; 99285; J2919; J3475

== ENCOUNTER 2025-08-17 17:45 | Emergency (ER) | payer MEDICARE, MEDICAID ==
[~2025-08-17 17:45] MED LIST changes: +IPRA0.00 NEB
[2025-08-17 18:17] LABS: BASO # 0.1 10^3/uL (0.0-0.2); BASO % 0.7 % (0.0-1.0); EOS # 0.2 10^3/uL (0.0-0.5); EOS % 2.4 % (0.0-3.0); LYMPH # 0.6 10^3/uL (1.5-5.0); LYMPH % 7.7 % (24.0-44.0); MONO # 0.8 10^3/uL (0.0-0.8); MONO % 10.2 % (2.0-8.0); NEUTROPHILS # 5.8 10^3/uL (1.5-8.5); NEUTROPHILS % 78.5 % (36.0-66.0)
[2025-08-17 18:18] LABS: PLATELET COUNT, AUTOMATED 74 10^3/uL (150-450)
[2025-08-17] MEDS: IPRATROPIUM 0.5 MG/ALBUTEROL 2.5 MG INH SOL UD 3 ML NEB ONE (18:18)
[2025-08-17] MEDS ORDERED: ACETAMINOPHEN 325 MG TAB PO ONE (18:45)
[2025-08-17] MEDS: IBUPROFEN 600 MG TAB PO ONE (18:55)
[2025-08-17 18:56] LABS: ALT/SGPT 26.0 U/L (7.0-40); AST/SGOT 31.0 U/L (<34); CALCIUM LEVEL 7.9 MG/DL (8.3-10.6); CARBON DIOXIDE LEVEL 29.0 MMOL/L (20-31); CHLORIDE LEVEL 96.0 MMOL/L (98-107); CREATININE FOR GFR 1.03 MG/DL (0.70-1.30); GLOMERULAR FILTRATION RATE 79.1 (>49); POTASSIUM SERUM 2.7 MMOL/L (3.5-5.1); SODIUM LEVEL 137.0 MMOL/L (136-145)
[2025-08-17] MEDS ORDERED: ISOVUE-370 76% 100 ML VIAL As Ordered ONE (19:34)
[2025-08-17] MEDS: KCL 10MEQ/100ML SWI (KRUN) 10 MEQ in IV 1 EA IV ONE (20:50)
[2025-08-17] MEDS: POTASSIUM CHLORIDE 10MEQ SR TABLET PO ONE ×2 (20:58→23:28)
[2025-08-17] MEDS: LIDOCAINE 5% PATCH TD ONE (23:06)
[2025-08-17 23:35] VITALS: BP 125/72; TEMP 98; O2SAT 96
== END 2025-08-17 23:50 | disposition home or self-care (01) ==
LOC: M ED 19:12
DX: E87.6 Hypokalemia (principal); I45.81 Long QT syndrome; M25.551 Pain in right hip; M25.552 Pain in left hip; I48.91 Unspecified atrial fibrillation; I25.119 Atherosclerotic heart disease of native coronary artery with unspecified angina pectoris; K21.9 Gastro-esophageal reflux disease without esophagitis; J44.9 Chronic obstructive pulmonary disease, unspecified; I25.2 Old myocardial infarction; E78.5 Hyperlipidemia, unspecified; F17.210 Nicotine dependence, cigarettes, uncomplicated; Z88.1 Allergy status to other antibiotic agents; Z88.5 Allergy status to narcotic agent; Z88.8 Allergy status to other drugs, medicaments and biological substances; Z91.048 Other nonmedicinal substance allergy status; Z79.51 Long term (current) use of inhaled steroids; Z79.899 Other long term (current) drug therapy; Z79.01 Long term (current) use of anticoagulants
CPT/HCPCS: 73502; 74177; 80048; 80076; 83690; 84132; 85025; 85049; 85055; 93005; 93041; 94640; 96365; 96366; 99285; Q9967

== ENCOUNTER 2025-08-18 20:26 | Emergency (ER) | payer MEDICARE, MEDICAID ==
[~2025-08-18] VITALS: Ht 182.9 cm; Wt 91.7 kg
[2025-08-18 21:16] LABS: BASO # 0.1 10^3/uL (0.0-0.2); BASO % 0.7 % (0.0-1.0); EOS # 0.3 10^3/uL (0.0-0.5); EOS % 3.5 % (0.0-3.0); LYMPH # 0.6 10^3/uL (1.5-5.0); LYMPH % 8.6 % (24.0-44.0); MONO # 0.6 10^3/uL (0.0-0.8); MONO % 7.6 % (2.0-8.0); NEUTROPHILS # 5.9 10^3/uL (1.5-8.5); NEUTROPHILS % 79.2 % (36.0-66.0)
[2025-08-18 21:19] LABS: PLATELET COUNT, AUTOMATED 81 10^3/uL (150-450)
[2025-08-18 21:29] LABS: ALT/SGPT 27 U/L (7.0-40); AST/SGOT 32 U/L (<34); CALCIUM LEVEL 8.2 MG/DL (8.3-10.6); CARBON DIOXIDE LEVEL 30 MMOL/L (20-31); CHLORIDE LEVEL 96 MMOL/L (98-107); CREATININE FOR GFR 0.95 MG/DL (0.70-1.30); GLOMERULAR FILTRATION RATE 87.2 (>49); POTASSIUM SERUM 3.2 MMOL/L (3.5-5.1); SODIUM LEVEL 135 MMOL/L (136-145)
[2025-08-18] MEDS: POTASSIUM CHLORIDE 10MEQ SR TABLET PO ONE (22:40)
[2025-08-18 22:54] LABS: ETHYL ALCOHOL (ETHANOL) < 0.003 % (0.000-0.010); MAGNESIUM LEVEL 1.4 MG/DL (1.8-2.4)
[2025-08-18 23:22] LABS: INR 1.24
[2025-08-18] MEDS: MAG SULF 1GM/100ML (MAG RUN) 1 GM in IV 1 EA IV ONE (23:50)
[2025-08-18] MEDS: MAGNESIUM OXIDE 400 MG TAB PO ONE (23:50)
[2025-08-19] MEDS: NS (Normal Saline) 0.9% 1,000 ML IV ONE (00:15)
[2025-08-19 01:52] VITALS: BP 124/70
[2025-08-19 01:56] VITALS: TEMP 98.5; O2SAT 95
== END 2025-08-19 02:16 | disposition home or self-care (01) ==
LOC: M ED 20:26
DX: R42 Dizziness and giddiness (principal); E83.42 Hypomagnesemia; I95.9 Hypotension, unspecified; E87.6 Hypokalemia; I48.91 Unspecified atrial fibrillation; I10 Essential (primary) hypertension; E78.5 Hyperlipidemia, unspecified; F17.210 Nicotine dependence, cigarettes, uncomplicated; Z88.1 Allergy status to other antibiotic agents; Z88.5 Allergy status to narcotic agent; Z88.8 Allergy status to other drugs, medicaments and biological substances; Z91.048 Other nonmedicinal substance allergy status; Z79.51 Long term (current) use of inhaled steroids; Z79.2 Long term (current) use of antibiotics; Z79.01 Long term (current) use of anticoagulants; Z79.52 Long term (current) use of systemic steroids; Z79.899 Other long term (current) drug therapy
CPT/HCPCS: 70450; 72125; 80047; 80053; 82077; 82140; 83735; 85025; 85049; 85055; 85610; 85730; 93005; 96365; 96366; 99285; J3475

== ENCOUNTER 2025-09-10 15:36 | Emergency (ER) | payer MEDICARE, MEDICAID ==
[~2025-09-10] VITALS: Ht 182.9 cm; Wt 84.1 kg
[2025-09-10 16:51] LABS: BASO # 0.1 10^3/uL (0.0-0.2); BASO % 0.9 % (0.0-1.0); EOS # 0.3 10^3/uL (0.0-0.5); EOS % 2.3 % (0.0-3.0); LYMPH # 1.1 10^3/uL (1.5-5.0); LYMPH % 9.6 % (24.0-44.0); MONO # 0.9 10^3/uL (0.0-0.8); MONO % 8.6 % (2.0-8.0); NEUTROPHILS # 8.6 10^3/uL (1.5-8.5); NEUTROPHILS % 78.2 % (36.0-66.0); PLATELET COUNT, AUTOMATED 135 10^3/uL (150-450)
[2025-09-10] MEDS ORDERED: ONDANSETRON 4MG/2ML VIAL IV PRN (17:15)
[2025-09-10 17:22] LABS: ALT/SGPT 27 U/L (7.0-40); AST/SGOT 33 U/L (<34); CALCIUM LEVEL 8.3 MG/DL (8.3-10.6); CARBON DIOXIDE LEVEL 34 MMOL/L (20-31); CHLORIDE LEVEL 98 MMOL/L (98-107); CREATININE FOR GFR 0.89 MG/DL (0.70-1.30); GLOMERULAR FILTRATION RATE > 90.0 (>49); POTASSIUM SERUM 3.4 MMOL/L (3.5-5.1); SODIUM LEVEL 140 MMOL/L (136-145)
[2025-09-10] MEDS ORDERED: ISOVUE-370 76% 100 ML VIAL As Ordered ONE (18:24)
[2025-09-10] MEDS: POTASSIUM CHLORIDE 10MEQ SR TABLET PO ONE (18:41)
[2025-09-10] MEDS ORDERED: AMOX875T2 PO (19:11)
[2025-09-10] MEDS ORDERED: ONDA-282 PO (19:13)
[2025-09-10 19:45] VITALS: BP 143/71; TEMP 98.2; O2SAT 96
[2025-09-10] MEDS: AUGMENTIN 875 MG TAB PO ONE (19:47)
== END 2025-09-10 21:01 | disposition home or self-care (01) ==
LOC: M ED 15:36 → EDBD 15:36 → M ED 21:01
DX: K57.32 Diverticulitis of large intestine without perforation or abscess without bleeding (principal); I48.91 Unspecified atrial fibrillation; I25.119 Atherosclerotic heart disease of native coronary artery with unspecified angina pectoris; K21.9 Gastro-esophageal reflux disease without esophagitis; J44.9 Chronic obstructive pulmonary disease, unspecified; E78.5 Hyperlipidemia, unspecified; G40.909 Epilepsy, unspecified, not intractable, without status epilepticus; F41.9 Anxiety disorder, unspecified; F32.A Depression, unspecified; F17.210 Nicotine dependence, cigarettes, uncomplicated; Z88.1 Allergy status to other antibiotic agents; Z88.5 Allergy status to narcotic agent; Z88.8 Allergy status to other drugs, medicaments and biological substances; Z79.51 Long term (current) use of inhaled steroids; Z79.2 Long term (current) use of antibiotics; Z79.01 Long term (current) use of anticoagulants; Z79.52 Long term (current) use of systemic steroids; Z79.899 Other long term (current) drug therapy
CPT/HCPCS: 36415; 74177; 80048; 80076; 83690; 85025; 99284; Q9967

== ENCOUNTER 2025-09-14 12:43 | Inpatient (IN) | payer MEDICARE, MEDICAID ==
[~2025-09-14] VITALS: Ht 182.9 cm; Wt 87.6 kg
[~2025-09-14 12:43] MED LIST changes: +AMOX875T2 PO; +ONDA-282 PO
[2025-09-14 14:06] LABS: BASO # 0.1 10^3/uL (0.0-0.2); BASO % 0.7 % (0.0-1.0); EOS # 0.2 10^3/uL (0.0-0.5); EOS % 1.9 % (0.0-3.0); LYMPH # 0.8 10^3/uL (1.5-5.0); LYMPH % 6.5 % (24.0-44.0); MONO # 1.0 10^3/uL (0.0-0.8); MONO % 7.8 % (2.0-8.0); NEUTROPHILS # 10.2 10^3/uL (1.5-8.5); NEUTROPHILS % 82.6 % (36.0-66.0); PLATELET COUNT, AUTOMATED 161 10^3/uL (150-450)
[2025-09-14 14:31] LABS: C REACTIVE PROTEIN QUANTITATIV 6.06 MG/DL (<1.0)
[2025-09-14] MEDS ORDERED: ISOVUE-370 76% 100 ML VIAL As Ordered ONE (15:05)
[2025-09-14] MEDS: MOXIFLOXACIN HCL 400 MG in IV 1 EA IV ONE (17:25)
[2025-09-14] MEDS ORDERED: POTA99CA2 PO (17:36)
[2025-09-14] MEDS ORDERED: ONDA-282 PO (17:36)
[2025-09-14] MEDS ORDERED: MAGN400T2 PO (17:36)
[2025-09-14] MEDS ORDERED: CENT1TAB PO (17:36)
[2025-09-14] MEDS ORDERED: PRIM50TA6 PO (17:36)
[2025-09-14] MEDS ORDERED: HOME MED LIST COMPLETE! XX SCH (17:40)
[2025-09-14] MEDS ORDERED: AMOX875T2 PO (17:49)
[2025-09-14] MEDS: PIPERACILLIN/TAZOBACTAM SOD 3.375 GM in DEXTROSE 5% (D5W) ADV/MINI-BAG 50 ML IV ONE (17:51)
[2025-09-14] MEDS: IPRATROPIUM 0.5 MG/ALBUTEROL 2.5 MG INH SOL UD 3 ML NEB SCH (20:00)
[2025-09-14 20:07] LABS: CALCIUM LEVEL 8.4 MG/DL (8.3-10.6); CARBON DIOXIDE LEVEL 28 MMOL/L (20-31); CHLORIDE LEVEL 98 MMOL/L (98-107); CREATININE FOR GFR 0.84 MG/DL (0.70-1.30); GLOMERULAR FILTRATION RATE > 90.0 (>49); POTASSIUM SERUM 3.2 MMOL/L (3.5-5.1); SODIUM LEVEL 137 MMOL/L (136-145)
[2025-09-14 20:30] VITALS: BP 126/71; TEMP 97.8; O2SAT 96
[2025-09-14] MEDS: LACTULOSE 20 GM/30 ML SYRUP UDC PO SCH (21:00)
[2025-09-14] MEDS: ATORVASTATIN 20 MG TAB PO SCH (21:01)
[2025-09-14] MEDS: PANTOPRAZOLE 40MG TAB PO SCH (21:01)
[2025-09-14] MEDS: traZODone 50 MG TAB PO SCH (21:01)
[2025-09-14] MEDS: POTASSIUM CHLORIDE 10MEQ SR TABLET PO ONE (21:01)
[2025-09-14] MEDS: KETOROLAC 30 MG/ML 1 ML VIAL IV PRN (21:03)
[2025-09-14] MEDS: PRIMIDONE 50MG TAB PO SCH (21:14)
[2025-09-15] MEDS: PIPERACILLIN/TAZOBACTAM SOD 3.375 GM in DEXTROSE 5% (D5W) ADV/MINI-BAG 50 ML IV SCH (00:37)
[2025-09-15 03:37] VITALS: BP 111/64; TEMP 98.2; O2SAT 96
[2025-09-15 06:17] LABS: BASO # 0.1 10^3/uL (0.0-0.2); BASO % 0.6 % (0.0-1.0); EOS # 0.3 10^3/uL (0.0-0.5); EOS % 3.1 % (0.0-3.0); LYMPH # 0.6 10^3/uL (1.5-5.0); LYMPH % 7.0 % (24.0-44.0); MONO # 0.9 10^3/uL (0.0-0.8); MONO % 10.1 % (2.0-8.0); NEUTROPHILS # 6.8 10^3/uL (1.5-8.5); NEUTROPHILS % 78.7 % (36.0-66.0)
[2025-09-15 06:40] LABS: CALCIUM LEVEL 7.6 MG/DL (8.3-10.6); CARBON DIOXIDE LEVEL 29 MMOL/L (20-31); CHLORIDE LEVEL 97 MMOL/L (98-107); CREATININE FOR GFR 0.82 MG/DL (0.70-1.30); GLOMERULAR FILTRATION RATE > 90.0 (>49); POTASSIUM SERUM 2.8 MMOL/L (3.5-5.1); SODIUM LEVEL 135 MMOL/L (136-145)
[2025-09-15 06:54] LABS: PLATELET COUNT, AUTOMATED 99 10^3/uL (150-450)
[2025-09-15] MEDS: POTASSIUM CHLORIDE 10% LIQ 20MEQ/15ML UDC PO ONE (08:35)
[2025-09-15] MEDS: SPIRONOLACTONE 50 MG TAB PO SCH (08:40)
[2025-09-15] MEDS: MAGNESIUM OXIDE 400 MG TAB PO SCH (08:41)
[2025-09-15] MEDS: FUROSEMIDE 40 MG TAB PO SCH (09:00)
[2025-09-15] MEDS ORDERED: POTASSIUM CHLORIDE 10MEQ SR TABLET PO SCH ×2 (09:00)
[2025-09-15] MEDS ORDERED: ENOXAPARIN 40 MG/0.4 ML SYRINGE (J1650 PER 10MG) SC SCH (09:00)
[2025-09-15 12:00] VITALS: BP 102/62; TEMP 98.6; O2SAT 97
[2025-09-15] MEDS: POTASSIUM CHLORIDE 10MEQ SR TABLET PO ONE (13:27)
[2025-09-15 19:50] VITALS: BP 102/60; TEMP 98.8; O2SAT 100
[2025-09-16 03:31] VITALS: BP 122/61; TEMP 99.1; O2SAT 92
[2025-09-16 07:57] LABS: BASO # 0.1 10^3/uL (0.0-0.2); BASO % 0.9 % (0.0-1.0); EOS # 0.2 10^3/uL (0.0-0.5); EOS % 3.8 % (0.0-3.0); LYMPH # 0.6 10^3/uL (1.5-5.0); LYMPH % 9.2 % (24.0-44.0); MONO # 0.6 10^3/uL (0.0-0.8); MONO % 10.1 % (2.0-8.0); NEUTROPHILS # 4.8 10^3/uL (1.5-8.5); NEUTROPHILS % 75.7 % (36.0-66.0)
[2025-09-16 07:59] LABS: PLATELET COUNT, AUTOMATED 86 10^3/uL (150-450)
[2025-09-16 08:00] LABS: CALCIUM LEVEL 7.6 MG/DL (8.3-10.6); CARBON DIOXIDE LEVEL 28.0 MMOL/L (20-31); CHLORIDE LEVEL 98.0 MMOL/L (98-107); CREATININE FOR GFR 1.0 MG/DL (0.70-1.30); GLOMERULAR FILTRATION RATE 82.0 (>49); POTASSIUM SERUM 3.0 MMOL/L (3.5-5.1); SODIUM LEVEL 135.0 MMOL/L (136-145)
[2025-09-16] MEDS: POTASSIUM CHLORIDE 10MEQ SR TABLET PO SCH (09:22)
[2025-09-16 11:52] VITALS: BP 111/68; TEMP 100.4; O2SAT 95
[2025-09-16] MEDS: LACTULOSE 20 GM/30 ML SYRUP UDC PO SCH (16:00)
[2025-09-16 16:25] LABS: INR 1.31
[2025-09-16 20:17] VITALS: BP 122/67; TEMP 99.5; O2SAT 95
[2025-09-17] VITALS (11 sets, daily range): BP systolic 95–124; BP diastolic 55–73; TEMP 97.4–100.1; O2SAT 89–95
[2025-09-17 06:25] LABS: BASO # 0.0 10^3/uL (0.0-0.2); BASO % 0.5 % (0.0-1.0); EOS # 0.1 10^3/uL (0.0-0.5); EOS % 1.5 % (0.0-3.0); LYMPH # 0.6 10^3/uL (1.5-5.0); LYMPH % 7.5 % (24.0-44.0); MONO # 0.6 10^3/uL (0.0-0.8); MONO % 8.1 % (2.0-8.0); NEUTROPHILS # 6.1 10^3/uL (1.5-8.5); NEUTROPHILS % 81.9 % (36.0-66.0)
[2025-09-17 06:32] LABS: PLATELET COUNT, AUTOMATED 94 10^3/uL (150-450)
[2025-09-17 06:47] LABS: CALCIUM LEVEL 7.4 MG/DL (8.3-10.6); CARBON DIOXIDE LEVEL 29 MMOL/L (20-31); CHLORIDE LEVEL 100 MMOL/L (98-107); CREATININE FOR GFR 0.91 MG/DL (0.70-1.30); GLOMERULAR FILTRATION RATE > 90.0 (>49); POTASSIUM SERUM 3.4 MMOL/L (3.5-5.1); SODIUM LEVEL 137 MMOL/L (136-145)
[2025-09-17 06:55] LABS: INR 1.34
[2025-09-17] MEDS ORDERED: MIDAZOLAM INJ 2 MG/2 ML VIAL As Ordered ONE (10:46)
[2025-09-17] MEDS ORDERED: ROCURONIUM BROMIDE 50MG/5ML VIAL As Ordered ONE (10:46)
[2025-09-17] MEDS ORDERED: LIDOCAINE 2% 100 MG/5 ML SDV (FOR ANES.) As Ordered ONE (10:46)
[2025-09-17] MEDS ORDERED: ONDANSETRON 4MG/2ML VIAL As Ordered ONE (10:46)
[2025-09-17] MEDS ORDERED: dexAMETHasone 4 MG/ML 1 ML VIAL As Ordered ONE (10:46)
[2025-09-17] MEDS ORDERED: ETOMIDATE 20 MG/10 ML VIAL As Ordered ONE (12:22)
[2025-09-17] MEDS: CETACAINE SPRAY 5 GM As Ordered ONE (12:38)
[2025-09-17] MEDS: ZOSYN 3.375GM VIAL As Ordered ONE (12:41)
[2025-09-17] MEDS ORDERED: SUGAMMADEX SODIUM 200 MG/2 ML VIAL As Ordered ONE (12:44)
[2025-09-17] MEDS: THROMBIN 5,000 UNITS VIAL As Ordered ONE (12:47)
[2025-09-17] MEDS ORDERED: ESMOLOL 100 MG/10 ML VIAL As Ordered ONE (12:50)
[2025-09-17] MEDS: EPINEPHrine 1 MG/10 ML SYRINGE 1.5IN As Ordered ONE (12:53)
[2025-09-17] MEDS ORDERED: ONDANSETRON 4MG/2ML VIAL IV PRN (13:00)
[2025-09-17] MEDS: LR 1,000 ML IV SCH (14:02)
[2025-09-17] MEDS: SODIUM CHLORIDE HYPERTONIC 3% 4ML NEB SOL INH SCH (16:00)
[2025-09-17] MEDS ORDERED: PROHANCE 279.3MG/ML 15ML VIAL As Ordered ONE (17:19)
[2025-09-17] MEDS ORDERED: PROHANCE 279.3MG/ML 5ML VIAL As Ordered ONE (17:19)
[2025-09-17] MEDS: ACETAMINOPHEN *IV* 1,000 MG in IV 1 EA IV ONE (23:05)
[2025-09-18] VITALS (7 sets, daily range): BP systolic 92–112; BP diastolic 50–59; TEMP 97.9–98.8; O2SAT 92–99
[2025-09-18] MEDS: MORPHINE 4 MG/ML 1 ML VIAL IV ONE (00:18)
[2025-09-18 09:18] LABS: BASO # 0.0 10^3/uL (0.0-0.2); BASO % 0.1 % (0.0-1.0); EOS # 0.0 10^3/uL (0.0-0.5); EOS % 0.1 % (0.0-3.0); LYMPH # 0.3 10^3/uL (1.5-5.0); LYMPH % 3.5 % (24.0-44.0); MONO # 0.4 10^3/uL (0.0-0.8); MONO % 4.7 % (2.0-8.0); NEUTROPHILS # 7.5 10^3/uL (1.5-8.5); NEUTROPHILS % 91.2 % (36.0-66.0)
[2025-09-18 09:22] LABS: PLATELET COUNT, AUTOMATED 81 10^3/uL (150-450)
[2025-09-18 09:25] LABS: CALCIUM LEVEL 7.8 MG/DL (8.3-10.6); CARBON DIOXIDE LEVEL 27.0 MMOL/L (20-31); CHLORIDE LEVEL 97.0 MMOL/L (98-107); CREATININE FOR GFR 0.94 MG/DL (0.70-1.30); GLOMERULAR FILTRATION RATE 88.3 (>49); MAGNESIUM LEVEL 1.7 MG/DL (1.8-2.4); POTASSIUM SERUM 3.7 MMOL/L (3.5-5.1); SODIUM LEVEL 132.0 MMOL/L (136-145)
[2025-09-18] MEDS: MAG SULF 1GM/100ML (MAG RUN) 1 GM in IV 1 EA IV SCH (13:38)
[2025-09-18] MEDS ORDERED: SODIUM CHLORIDE HYPERTONIC 3% 4ML NEB SOL INH SCH (14:00)
[2025-09-18] MEDS: LIDOCAINE 5% PATCH TD SCH (17:13)
[2025-09-18] MEDS: POTASSIUM CHLORIDE 10MEQ SR TABLET PO ONE (17:13)
[2025-09-18] MEDS: ONDANSETRON 4MG/2ML VIAL IV PRN (17:14)
[2025-09-18] MEDS: SODIUM CHLORIDE HYPERTONIC 3% 4ML NEB SOL INH SCH (20:12)
[2025-09-19 03:34] VITALS: BP 121/65; TEMP 98.7; O2SAT 95
[2025-09-19 07:09] LABS: BASO # 0.0 10^3/uL (0.0-0.2); BASO % 0.2 % (0.0-1.0); EOS # 0.2 10^3/uL (0.0-0.5); EOS % 1.9 % (0.0-3.0); LYMPH # 0.5 10^3/uL (1.5-5.0); LYMPH % 6.3 % (24.0-44.0); MONO # 0.6 10^3/uL (0.0-0.8); MONO % 6.9 % (2.0-8.0); NEUTROPHILS # 7.0 10^3/uL (1.5-8.5); NEUTROPHILS % 84.1 % (36.0-66.0)
[2025-09-19 07:13] LABS: PLATELET COUNT, AUTOMATED 84 10^3/uL (150-450)
[2025-09-19 07:29] LABS: ALT/SGPT 26.0 U/L (7.0-40); AST/SGOT 30.0 U/L (<34); CALCIUM LEVEL 7.5 MG/DL (8.3-10.6); CARBON DIOXIDE LEVEL 26.0 MMOL/L (20-31); CHLORIDE LEVEL 102.0 MMOL/L (98-107); CREATININE FOR GFR 1.12 MG/DL (0.70-1.30); GLOMERULAR FILTRATION RATE 71.6 (>49); MAGNESIUM LEVEL 1.6 MG/DL (1.8-2.4); POTASSIUM SERUM 4.1 MMOL/L (3.5-5.1); SODIUM LEVEL 135.0 MMOL/L (136-145)
[2025-09-19] MEDS: DICLOFENAC EPOLAMINE 1.3% PATCH TOP SCH (09:31)
[2025-09-19 12:00] VITALS: BP 111/61; TEMP 99.2; O2SAT 96
[2025-09-19] MEDS: MAG SULF 1GM/100ML (MAG RUN) 1 GM in IV 1 EA IV SCH (15:11)
[2025-09-19 19:42] VITALS: BP 127/80; TEMP 99; O2SAT 98
[2025-09-20 03:52] VITALS: BP 155/88; TEMP 100.1; O2SAT 97
[2025-09-20 06:26] VITALS: TEMP 101
[2025-09-20 07:19] LABS: BASO # 0.1 10^3/uL (0.0-0.2); BASO % 0.6 % (0.0-1.0); EOS # 0.3 10^3/uL (0.0-0.5); EOS % 3.4 % (0.0-3.0); LYMPH # 0.6 10^3/uL (1.5-5.0); LYMPH % 6.9 % (24.0-44.0); MONO # 1.1 10^3/uL (0.0-0.8); MONO % 12.0 % (2.0-8.0); NEUTROPHILS # 6.9 10^3/uL (1.5-8.5); NEUTROPHILS % 76.8 % (36.0-66.0); PLATELET COUNT, AUTOMATED 110 10^3/uL (150-450)
[2025-09-20 07:30] LABS: CALCIUM LEVEL 7.6 MG/DL (8.3-10.6); CARBON DIOXIDE LEVEL 28.0 MMOL/L (20-31); CHLORIDE LEVEL 105.0 MMOL/L (98-107); CREATININE FOR GFR 0.99 MG/DL (0.70-1.30); GLOMERULAR FILTRATION RATE 83.0 (>49); MAGNESIUM LEVEL 1.6 MG/DL (1.8-2.4); POTASSIUM SERUM 4.3 MMOL/L (3.5-5.1); SODIUM LEVEL 140.0 MMOL/L (136-145)
[2025-09-20 08:35] VITALS: BP 144/72; TEMP 100; O2SAT 99
[2025-09-20 12:30] VITALS: BP 118/65; TEMP 98.9; O2SAT 99
[2025-09-20] MEDS: HYDROMORPHONE HCL 0.5 MG/0.5 ML SYRINGE IV PRN (12:42)
[2025-09-20] MEDS: MAG SULF 1GM/100ML (MAG RUN) 1 GM in IV 1 EA IV SCH (15:56)
[2025-09-20 19:59] VITALS: BP 138/83; TEMP 98.1; O2SAT 97
[2025-09-20] MEDS: KETOROLAC 30 MG/ML 1 ML VIAL IV ONE (22:10)
[2025-09-21 05:44] VITALS: BP 130/80; TEMP 98.3; O2SAT 99
[2025-09-21 07:04] LABS: BASO # 0.1 10^3/uL (0.0-0.2); BASO % 0.8 % (0.0-1.0); EOS # 0.4 10^3/uL (0.0-0.5); EOS % 5.0 % (0.0-3.0); LYMPH # 0.7 10^3/uL (1.5-5.0); LYMPH % 9.1 % (24.0-44.0); MONO # 0.7 10^3/uL (0.0-0.8); MONO % 9.8 % (2.0-8.0); NEUTROPHILS # 5.5 10^3/uL (1.5-8.5); NEUTROPHILS % 74.8 % (36.0-66.0); PLATELET COUNT, AUTOMATED 109 10^3/uL (150-450)
[2025-09-21 07:32] LABS: CALCIUM LEVEL 8.0 MG/DL (8.3-10.6); CARBON DIOXIDE LEVEL 31.0 MMOL/L (20-31); CHLORIDE LEVEL 98.0 MMOL/L (98-107); CREATININE FOR GFR 1.02 MG/DL (0.70-1.30); GLOMERULAR FILTRATION RATE 80.1 (>49); MAGNESIUM LEVEL 2.0 MG/DL (1.8-2.4); POTASSIUM SERUM 4.7 MMOL/L (3.5-5.1); SODIUM LEVEL 136.0 MMOL/L (136-145)
[2025-09-21 09:30] VITALS: TEMP 98.8
[2025-09-21 12:19] VITALS: BP 102/60; TEMP 99.4; O2SAT 98
[2025-09-21 18:39] LABS: BASO # 0.0 10^3/uL (0.0-0.2); BASO % 0.5 % (0.0-1.0); EOS # 0.2 10^3/uL (0.0-0.5); EOS % 2.8 % (0.0-3.0); LYMPH # 0.5 10^3/uL (1.5-5.0); LYMPH % 6.3 % (24.0-44.0); MONO # 0.6 10^3/uL (0.0-0.8); MONO % 8.0 % (2.0-8.0); NEUTROPHILS # 6.3 10^3/uL (1.5-8.5); NEUTROPHILS % 82.0 % (36.0-66.0); PLATELET COUNT, AUTOMATED 99 10^3/uL (150-450)
[2025-09-21 18:56] LABS: HEPATITIS B SURFACE ANTIBODY NEGATIVE (POSITIVE)
[2025-09-21 19:20] LABS: HIV SCREEN CENTAUR SOURCE NEGATIVE (NEGATIVE)
[2025-09-21 19:29] LABS: HEP C VIRUS AB INDEX SOURCE PT 0.1 INDEX (0.0-0.8)
[2025-09-21 19:31] LABS: ALT/SGPT 40 U/L (7.0-40); AST/SGOT 37 U/L (<34); CALCIUM LEVEL 8.0 MG/DL (8.3-10.6); CARBON DIOXIDE LEVEL 28 MMOL/L (20-31); CHLORIDE LEVEL 100 MMOL/L (98-107); CREATININE FOR GFR 1.15 MG/DL (0.70-1.30); GLOMERULAR FILTRATION RATE 69.3 (>49); POTASSIUM SERUM 4.6 MMOL/L (3.5-5.1); SODIUM LEVEL 136 MMOL/L (136-145)
[2025-09-21 19:38] VITALS: BP 120/74; TEMP 98.7; O2SAT 98
[2025-09-21] MEDS: KETOROLAC 30 MG/ML 1 ML VIAL IV ONE (20:13)
[2025-09-22 06:29] VITALS: BP 107/69; TEMP 98.9; O2SAT 99
[2025-09-22 06:32] LABS: PLATELET COUNT, AUTOMATED 87 10^3/uL (150-450)
[2025-09-22 07:05] LABS: CALCIUM LEVEL 7.9 MG/DL (8.3-10.6); CARBON DIOXIDE LEVEL 30.0 MMOL/L (20-31); CHLORIDE LEVEL 100.0 MMOL/L (98-107); CREATININE FOR GFR 1.26 MG/DL (0.70-1.30); GLOMERULAR FILTRATION RATE 62.1 (>49); MAGNESIUM LEVEL 2.0 MG/DL (1.8-2.4); POTASSIUM SERUM 4.3 MMOL/L (3.5-5.1); SODIUM LEVEL 137.0 MMOL/L (136-145)
[2025-09-22 12:00] VITALS: BP 113/60; TEMP 99.6; O2SAT 96
[2025-09-22 20:56] VITALS: BP 104/69; TEMP 100; O2SAT 97
[2025-09-23 05:33] VITALS: BP 123/77; TEMP 99.9; O2SAT 95
[2025-09-23 07:50] LABS: PLATELET COUNT, AUTOMATED 91 10^3/uL (150-450)
[2025-09-23 08:09] LABS: CALCIUM LEVEL 8.2 MG/DL (8.3-10.6); CARBON DIOXIDE LEVEL 28.0 MMOL/L (20-31); CHLORIDE LEVEL 103.0 MMOL/L (98-107); CREATININE FOR GFR 1.27 MG/DL (0.70-1.30); GLOMERULAR FILTRATION RATE 61.5 (>49); MAGNESIUM LEVEL 1.9 MG/DL (1.8-2.4); POTASSIUM SERUM 4.4 MMOL/L (3.5-5.1); SODIUM LEVEL 137.0 MMOL/L (136-145)
[2025-09-23 11:47] VITALS: BP 134/89; TEMP 98.4; O2SAT 96
[2025-09-23 15:05] VITALS: BP 114/64; TEMP 99; O2SAT 99
[2025-09-23 20:56] VITALS: BP 117/60; TEMP 98.8; O2SAT 96
[2025-09-24 02:03] VITALS: TEMP 99.4
[2025-09-24 08:02] LABS: PLATELET COUNT, AUTOMATED 97 10^3/uL (150-450)
[2025-09-24 08:18] LABS: CALCIUM LEVEL 8.2 MG/DL (8.3-10.6); CARBON DIOXIDE LEVEL 26.0 MMOL/L (20-31); CHLORIDE LEVEL 101.0 MMOL/L (98-107); CREATININE FOR GFR 1.07 MG/DL (0.70-1.30); GLOMERULAR FILTRATION RATE 75.6 (>49); MAGNESIUM LEVEL 1.8 MG/DL (1.8-2.4); POTASSIUM SERUM 4.1 MMOL/L (3.5-5.1); SODIUM LEVEL 135.0 MMOL/L (136-145)
[2025-09-24 09:00] VITALS: BP 104/58
[2025-09-24 12:00] VITALS: BP 123/58; TEMP 99.3; O2SAT 97
== END 2025-09-24 12:49 | disposition home health service (06) | DRG 180 ==
LOC: M ED 12:43 → EDBD 12:43 → M ED INP 18:16 → M MSPAV 20:14
PROVIDERS: ADMIT Internal Medicine Nephrology; ATTEND Internal Medicine
PROC: 0BB78ZX Excision of Left Main Bronchus, Via Natural or Artificial Opening Endoscopic, Diagnostic (ICD-10-PCS; principal; 2025-09-17 12:00)
DX: C34.32 Malignant neoplasm of lower lobe, left bronchus or lung (principal); J18.9 Pneumonia, unspecified organism; I85.10 Secondary esophageal varices without bleeding; K76.6 Portal hypertension; J90 Pleural effusion, not elsewhere classified; J44.0 Chronic obstructive pulmonary disease with (acute) lower respiratory infection; M25.512 Pain in left shoulder; K74.60 Unspecified cirrhosis of liver; K76.82 Hepatic encephalopathy; F17.200 Nicotine dependence, unspecified, uncomplicated; D17.39 Benign lipomatous neoplasm of skin and subcutaneous tissue of other sites; D69.6 Thrombocytopenia, unspecified; I48.91 Unspecified atrial fibrillation; G40.909 Epilepsy, unspecified, not intractable, without status epilepticus; F32.A Depression, unspecified; F41.9 Anxiety disorder, unspecified; E78.5 Hyperlipidemia, unspecified; I25.10 Atherosclerotic heart disease of native coronary artery without angina pectoris; K21.9 Gastro-esophageal reflux disease without esophagitis; D64.9 Anemia, unspecified; G62.9 Polyneuropathy, unspecified; G43.909 Migraine, unspecified, not intractable, without status migrainosus; G89.29 Other chronic pain; E87.6 Hypokalemia; E83.42 Hypomagnesemia; Z98.1 Arthrodesis status; Z90.49 Acquired absence of other specified parts of digestive tract; Z79.899 Other long term (current) drug therapy; Z88.0 Allergy status to penicillin; Z88.1 Allergy status to other antibiotic agents; Z88.5 Allergy status to narcotic agent; Z88.8 Allergy status to other drugs, medicaments and biological substances; Z91.048 Other nonmedicinal substance allergy status; M19.012 Primary osteoarthritis, left shoulder

== ENCOUNTER 2025-09-20 13:11 | Outpatient (RCR) | payer MEDICARE, MEDICAID ==
[~2025-09-20 13:11] MED LIST changes: +CENT1TAB PO; +MAGN400T2 PO; +POTA99CA2 PO; +PROHANCE 279.3MG/ML 15ML VIAL As Ordered ONE; +PROHANCE 279.3MG/ML 5ML VIAL As Ordered ONE
== END 2025-10-02 ==
LOC: M ONCR 13:11
PROVIDERS: ATTEND General Practice
DX: Z51.0 Encounter for antineoplastic radiation therapy (principal); C34.32 Malignant neoplasm of lower lobe, left bronchus or lung